=== PATIENT | female | born 1940 | race Caucasian/White ===

== ENCOUNTER 2022-10-26 11:05 | Outpatient (REF) | payer MEDICARE, OTHER, SELFPAY ==
[2022-10-26 11:36] LABS: Appearance Urine Slightly Cloudy (Clear); Bilirubin Urine Negative (Negative); Blood Urine Trace-intact (Negative); Color Urine Yellow (Yellow); Glucose Urine Negative (Negative); Ketones Urine Negative (Negative); Leukocyte Esterase Urine 1+ (Negative); Nitrite Urine Negative (Negative); Protein Urine Negative (Negative); Urobilinogen Urine 0.2 (0.2-1.0)
[2022-10-26 11:49] LABS: RBC Urine 0-2 (0-2)
== END 2022-10-26 11:06 | disposition home or self-care (01) ==
LOC: NPINS 11:05
PROVIDERS: PCP Family Medicine; Visit Provider Nurse Practitioner Adult Health
DX: R41.0 Disorientation, unspecified (principal)
CPT/HCPCS: 81003; 81015; 87086

== ENCOUNTER 2024-06-19 22:30 | Outpatient (CLI) | payer MEDICARE, OTHER, SELFPAY | END 2024-06-19 22:31 | disposition home or self-care (01) | LOC: AMB 06-20 23:32 | PROVIDERS: PCP Family Medicine; Visit Provider Student in an Organized Health Care Education/Training Program | DX: S89.91XA Unspecified injury of right lower leg, initial encounter (principal); W19.XXXA Unspecified fall, initial encounter; Y92.10 Unspecified residential institution as the place of occurrence of the external cause | CPT/HCPCS: A0425; A0427 ==

== ENCOUNTER 2024-06-19 23:00 | Inpatient (IN) | payer MEDICARE, OTHER, SELFPAY ==
[2024-06-19 23:09] VITALS: BP 109/66; PULSE 103; RESP 18; TEMP 36.4; O2SAT 90
--- NOTE | 2024-06-19 23:28 | CRLHL7_ITS ---
For Patients: As a result of the Century Cures Act, medical imaging exams and procedure reports are released immediately into your electronic medical record. You may view this report before your referring provider. If you have questions, please contact your health care provider. Indication: Trauma. Technique: Pelvis/left hip, 2 views. Comparison: October 24, 2018. Findings/Impression: Bones/joint spaces: Left hip intertrochanteric arelis and nail. Subtle lucency involving the left lateral femoral neck favored to be related to overlapping heterotopic bone formation. Recommend correlation with point tenderness to exclude nondisplaced fracture. Otherwise, no hardware complication. Acute right hip intertrochanteric fracture with varus angulation. Soft tissues: Unremarkable. Dictated by Ricki Vazquez MD @ 06/20/2024 12:23:29 AM (Electronically Signed)
--- NOTE | 2024-06-19 23:28 | CRLHL7_ITS ---
For Patients: As a result of the Cures Act, medical imaging exams and procedure reports are released immediately into your electronic medical record. You may view this report before your referring provider. If you have questions, please contact your health care provider. Indication: Trauma. Technique: Right femur, 2 views. Comparison: None. Findings/Impression: Bones: Acute displaced right femoral intertrochanteric fracture with varus angulation. Joint spaces: Unremarkable. Soft tissues: Unremarkable. Dictated by Ricki Vazquez MD @ 06/20/2024 12:17:45 AM (Electronically Signed)
--- NOTE | 2024-06-19 23:29 | CRLHL7_ITS ---
For Patients: As a result of the Century Cures Act, medical imaging exams and procedure reports are released immediately into your electronic medical record. You may view this report before your referring provider. If you have questions, please contact your health care provider. INDICATION: Fall. COMPARISON: None. TECHNIQUE: CT of the cervical spine without IV contrast. Coronal and sagittal reconstructions. FINDINGS: No acute fracture or traumatic malalignment of the cervical spine. Mild anterolisthesis of C3 on C4 and C4 on C5. Minimal retrolisthesis of C5 on C6 and C6 on C7. Reversal of the normal cervical lordosis. Degenerative changes of the C1-C2 articulation. Spondylotic changes including endplate spurring, facet arthropathy, and disc space narrowing. Bilateral neural foraminal narrowing and mild spinal canal stenosis at C5-C6 and C6-C7. No prevertebral soft tissue swelling. Visualized intracranial contents are unremarkable. Diminutive thyroid gland. The mastoid air cells are clear. Biapical pleural scarring. IMPRESSION: 1. No acute fracture or traumatic malalignment of the cervical spine. 2. Reversal of the normal cervical lordosis with multilevel spondylotic changes. Please note that all CT scans at this facility use dose modulation, iterative reconstruction, and/or weight-based dosing when appropriate to reduce radiation dose to as low as reasonably achievable. Dictated by Carol Huizar MD @ 06/20/2024 12:28:34 AM (Electronically Signed)
--- NOTE | 2024-06-19 23:29 | CRLHL7_ITS ---
For Patients: As a result of the Century Cures Act, medical imaging exams and procedure reports are released immediately into your electronic medical record. You may view this report before your referring provider. If you have questions, please contact your health care provider. INDICATION: Fall. COMPARISON: None. TECHNIQUE: CT of the head without IV contrast. Coronal and sagittal reconstructions. FINDINGS: No intracranial hemorrhage, mass effect, or evidence of acute infarct. No midline shift. No abnormal extra-axial fluid collections. Moderate generalized cerebral and cerebellar volume loss with associated ex vacuo dilation of the lateral ventricles. Mild chronic small vessel ischemic disease. Orbits and extraocular muscles are symmetric. The visualized paranasal sinuses and mastoid air cells are clear. Soft tissues are unremarkable. No acute fracture identified. IMPRESSION: 1. No acute intracranial findings. 2. Moderate generalized parenchymal volume loss and mild chronic small vessel ischemic disease. Please note that all CT scans at this facility use dose modulation, iterative reconstruction, and/or weight-based dosing when appropriate to reduce radiation dose to as low as reasonably achievable. Dictated by Carol Huizar MD @ 06/20/2024 12:21:40 AM (Electronically Signed)
--- NOTE | 2024-06-19 23:31 | ED_ITS ---
HPI - Fall General Chief Complaint: Fall/Minor Trauma <Shaun Medellin DO - Last Filed: 06/21/24 00:01> Stated Complaint: Fall <Shaun Medellin DO - Last Filed: 06/21/24 00:01> Time Seen by Provider: 06/19/24 23:28 <Shaun Medellin DO - Last Filed: 06/21/24 00:01> Source: EMS and other ([facility] staff) <Shaun Medellin DO - Last Filed: 06/21/24 00:01> Mode of arrival: EMS <Shaun Medellin DO - Last Filed: 06/21/24 00:01> Limitations: no limitations and altered mental status <Shaun Medellin DO - Last Filed: 06/21/24 00:01> History of Present Illness HPI Narrative: Patient is an 84-year-old female with a history of dementia who is currently comfort cares only presenting to the emergency department for a fall. She comes from [place] and typically needs help with ambulation as she is a high fall risk. Susannah lara a was trying to help her back to bed when she got out of bed by herself to closer door and the patient fell backwards hitting her head. She patient imaging screaming in pain so staff called EMS to bring her to the emergency department to look for any injuries. Patient has severe dementia and cannot answer any of my questions appropriately. <Shaun Medellin DO - Last Filed: 06/21/24 00:01> Related Data Home Medications: Home Medications ?Medication ?Instructions ?Recorded ?Confirmed acetaminophen 500 mg tablet 1,000 mg PO TID PRN 06/19/24 06/20/24 clotrimazole 1 % topical cream applic topical 06/19/24 (Antifungal (clotrimazole)) levothyroxine 75 mcg tablet 75 mcg PO DAILY 06/19/24 06/19/24 lorazepam 0.5 mg tablet 0.25 mg PO DAILY PRN 06/19/24 06/20/24 sertraline 100 mg tablet 100 mg PO DAILY 06/19/24 06/19/24 sertraline 25 mg tablet 25 mg PO DAILY 06/19/24 06/19/24 sennosides 8.6 mg-docusate sodium 1 tab-cap PO BID 06/20/24 06/20/24 50 mg tablet (Stimulant Laxative Plus) <Shaun Medellin DO - Last Filed: 06/21/24 00:01> Allergies/Adverse Reactions: Allergies Allergy/AdvReac Type Severity Reaction Status Date / Time gadodiamide Allergy Verified 06/19/24 23:18 Iodinated Contrast Media Allergy Verified 06/19/24 23:18 <Shaun Medellin DO - Last Filed: 06/21/24 00:01> Review of Systems Status of ROS: Reports: unobtainable due to mental status <Shaun Medellin DO - Last Filed: 06/21/24 00:01> [facility] Medical History: Medical History Hx SBO ?Z87.19 - Personal history of other diseases of the digestive system (ICD-10) Dementia without behavioral disturbance ?F03.90 - Unspecified dementia, unspecified severity, without behavioral disturbance, psychotic disturbance, mood disturbance, and anxiety (ICD-10) History of colon polyps ?Z86.010 - Personal history of colonic polyps (ICD-10) Diverticulitis of colon (without mention of hemorrhage) ?K57.32 - Diverticulitis of large intestine without perforation or abscess without bleeding (ICD-10) Femur fracture, right ?S72.91XA - Unspecified fracture of right femur, initial encounter for closed fracture (ICD-10) Fracture of neck ?S12.9XXA - Fracture of neck, unspecified, initial encounter (ICD-10) Osteoarthritis ?M19.90 - Unspecified osteoarthritis, unspecified site (ICD-10) Constipation ?K59.00 - Constipation, unspecified (ICD-10) Osteoporosis ?M81.0 - Age-related osteoporosis without current pathological fracture (ICD- 10) Fracture closed, humerus ?S42.309A - Unspecified fracture of shaft of humerus, unspecified arm, initial encounter for closed fracture (ICD-10) Incontinent of urine ?R32 - Unspecified urinary incontinence (ICD-10) Insomnia ?G47.00 - Insomnia, unspecified (ICD-10) Hyperthyroidism ?E05.90 - Thyrotoxicosis, unspecified without thyrotoxic crisis or storm (ICD-10) <Shaun Medellin DO - Last Filed: 06/21/24 00:01> Surgical History: Surgical History (Updated 06/20/24 @ 07:29 by Radha Patel MD) History of salpingectomy ?Z90.79 - Acquired absence of other genital organ(s) (ICD-10) History of conization of cervix ?Z98.890 - Other specified postprocedural states (ICD-10) Hx of appendectomy ?Z90.49 - Acquired absence of other specified parts of digestive tract (ICD- 10) S/P ORIF (open reduction internal fixation) fracture ?Z98.890 - Other specified postprocedural states (ICD-10) ?Z87.81 - Personal history of (healed) traumatic fracture (ICD-10) H/O lysis of adhesions ?Z98.890 - Other specified postprocedural states (ICD-10) H/O colonoscopy ?Z98.890 - Other specified postprocedural states (ICD-10) <Shaun Medellin DO - Last Filed: 06/21/24 00:01> Social History: Social History What is your current living situation?: I presently have a place to live Problems where you live: no known problems Problems where you live details: none In the past 12 months, utilities in danger of being shut off: no In past 12 months, lack of transportation kept you from medical appts, meetings, work, or getting things needed for daily living: no In the past 12 mos, have been you worried that your food would run out before you had money to buy more?: unable to answer In the past 12 mos, the food you bought just didn't last and you didn't have money to buy more?: unable to answer How often does anyone, including family, friends and others, physically hurt you : unable to answer How often does anyone, including family, friends and others, insult or talk down to you: unable to answer How often does anyone, including family, friends and others, threaten you with harm: unable to answer How often does anyone, including family, friends and others, scream or curse at you: unable to answer <Shaun Medellin DO - Last Filed: 06/21/24 00:01> Exam Narrative: Exam Narrative: Const: Thin, moderate distress Eyes: PERRL, no conjunctival injection, and symmetrical lids HENT: Atraumatic external nose and ears. Moist mucous membranes. Neck: Symmetric, trachea midline, No thyromegaly. CVS: RRR, No murmurs or gallops. Peripheral pulses 2+ and equal in all extremities RESP: Unlabored respiratory effort. Clear to auscultation bilaterally. GI: Nontender/Nondistended, No rebound or guarding. MSK:Extremities w/o deformity, tender bilateral hips and right thigh Skin: Warm, Dry. No rashes or lesions. Neuro: No focal neurological deficits. Psych: Awake but not oriented <Shaun Medellin DO - Last Filed: 06/21/24 00:01> Const: Vital Signs, click to edit/add: Vital Signs - 24 hr 06/20/24 01:16 06/20/24 01:17 06/20/24 01:30 Temperature Pulse Rate 96 84 91 Pulse Rate [Pulse Oximeter] Respiratory Rate 16 Blood Pressure 106/72 Blood Pressure [Ri ght Arm] Pulse Oximetry 89 94 92 Oxygen Delivery Me thod Nasal Cannula Nasal Cannula Oxygen Flow Rate 1 1 06/20/24 01:45 06/20/24 02:03 06/20/24 02:03 Temperature 96.5 F L Pulse Rate 92 Pulse Rate [Pulse Oximeter] 87 Respiratory Rate 17 Blood Pressure Blood Pressure [Ri ght Arm] 144/89 H Pulse Oximetry 94 93 93 Oxygen Delivery Me thod Nasal Cannula Room Air Room Air Oxygen Flow Rate 1 <Shaun Medellin DO - Last Filed: 06/21/24 00:01> Vital Signs, click to edit/add: Vital Signs - 24 hr 06/20/24 01:16 06/20/24 01:17 06/20/24 01:30 Temperature Pulse Rate 96 84 91 Pulse Rate [Pulse Oximeter] Respiratory Rate 16 Blood Pressure 106/72 Blood Pressure [Ri ght Arm] Pulse Oximetry 89 94 92 Oxygen Delivery Me thod Nasal Cannula Nasal Cannula Oxygen Flow Rate 1 1 06/20/24 01:45 06/20/24 02:03 06/20/24 02:03 Temperature 96.5 F L Pulse Rate 92 Pulse Rate [Pulse Oximeter] 87 Respiratory Rate 17 Blood Pressure Blood Pressure [Ri ght Arm] 144/89 H Pulse Oximetry 94 93 93 Oxygen Delivery Me thod Nasal Cannula Room Air Room Air Oxygen Flow Rate 1 <German Varela MD - Last Filed: 06/20/24 01:46> Course Course ED Course: Dr. Varela took over care of this patient and about midnight. We were called to the x-ray department by the x-ray techs were doing the plain film x- rays of her hip and pelvis. Review of the plain films in the x-ray suite show evidence for a previous left hip fracture with surgical repair. She also appears to have an acute right hip inter trochanteric fracture with fracture through the lesser trochanter as well. She had pulled out her IV already. Patient was brought back to ER room 5. I asked the nurses to restarting new IV so that we can administer analgesics for comfort. Dr. Varela repeated history. Because of the dementia, patient not able to provide any history. Repeat exam Primary Survey: A- patent. Speaking clearly. Phonation normal. No stridor. B- breathing easily. Lung sounds clear and equal. Oxygen saturation normal on room air C- no active bleeding. Blood pressure stable. Symmetric pulses and cap refill in 4 extremities. D- alert . Oriented to person. Not date. Cannot give me details of what happened. GCS 15. No focal deficits. Constitutional: Appears well-developed and well-nourished. Alert. Uncomfortable, but Non toxic. HENT: Head: Atraumatic. Nose: Nose normal. Mouth/Throat: Oral mucosa is clear and moist. no trismus. Pharynx normal. Tonsils symmetric. No tonsillar enlargement, erythema, or exudate. Eyes: Conjunctivae normal. EOM normal. Pupils equal, round, and reactive to light. No scleral icterus. Neck: Normal range of motion. Neck supple. No tracheal deviation present. Cardiovascular: Normal rate, regular rhythm. No gallop. No friction rub. No murmur heard. Symmetric radial and DP and PT artery pulses . Normal cap refill in both feet. Pulmonary/Chest: Effort normal. No stridor. No respiratory distress. No wheezes. No rales. No rhonchi . No tenderness. Abdominal: Soft. Bowel sounds normal. No distension. No mass. Upper and right side tenderness. No rebound. No guarding. Musculoskeletal: RUE: Normal range of motion. No tenderness. No deformity LUE: Normal range of motion. No tenderness. No deformity RLE: Right hip tenderness. Some shortening of the right leg suspicious for hip fracture. Range of motion the hip, knee are limited by pain. No tenderness of the distal femur, thigh, knee, lower leg, ankle, foot. LLE: Normal range of motion. No edema. No tenderness. No deformity Neurological: Alert and oriented to person, but not to place or date. She does have reported advanced dementia. Normal strength. CN II-VII intact. No sensory deficit. GCS eye subscore is 4. GCS verbal subscore is 5. GCS motor subscore is 6. Normal coordination Skin: Skin is warm and dry. No rash noted. No pallor. Normal capillary refill. Psychiatric: Limited by dementia. ER course Patient received IV Dilaudid 0.5 mg and 4 mg of Zofran She was resting more comfortably after meds. CT chest abdomen pelvis showed obtained and shows no acute traumatic injury save for her right hip fracture. Incidental note of coronary atherosclerosis. She is not complaining of any chest pain. Discussed the x-ray findings with the on-call PA for Orthopedics, Shaun Quintero. He reviewed and discussed with the attending. Plan would be for operative fixation in the morning. Admit to hospitalist for pain control and medical management CBC shows normal white count and hemoglobin. Normal platelet count. Patient is not anticoagulated BMP shows normal kidney function, blood sugar, electrolytes Izquierdo catheter was placed to for bladder decompression and for comfort so the patient does not have to move her leg or roll to go to the bathroom. Twelve lead EKG does show atrial fibrillation. Rate of 76. Unknown if the AFib is new onset or old. She is not endorsing any palpitations. She is not antico agulated, according to her med list. EKG also shows low-voltage QRS. No ST segment elevation or depression or signs of ischemia. I called her son, Prasanth at about 1:20 a.m.. He did not answer his phone. Voicemail left with our return phone number. At this point she clearly cannot discharge back to her memory care unit with the amount of pain she is having from her hip fracture. Will plan to admit her to the hospitalist service overnight. Hospitalist ortho can contact her son later to confirm consent for planned. However, although she is reported to be ?comfort care?, in the interest of her comfort, operative fixation for her hip would be best. Discussed with hospitalist, through her arise in, Dr. Jiménez at 1:30 a.m.. He accepts the patient for admission. Clinical pressure 1. Right hip fracture-intratrochanteric fracture 2. Dementia 3. Atrial fibrillation 4. Fall <German Varela MD - Last Filed: 06/20/24 01:46> Vital Signs Vital signs: Initial Vital Signs Temperature 97.6 F 06/19/24 23:09 Temperature Source Temporal Artery Scan 06/19/24 23:09 Pulse Rate 103 H 06/19/24 23:09 Respiratory Rate 18 06/19/24 23:09 Blood Pressure 109/66 06/19/24 23:09 Blood Pressure Mean 80 06/19/24 23:09 Blood Pressure Position Supine 06/19/24 23:09 Pulse Oximetry 90 06/19/24 23:09 Oxygen Delivery Method Room Air 06/19/24 23:09 Vital Signs Temperature 97.6 F 06/19/24 23:09 Pulse Rate 103 H 06/19/24 23:09 Respiratory Rate 18 06/19/24 23:09 Blood Pressure 109/66 06/19/24 23:09 Pulse Oximetry 90 06/19/24 23:09 Oxygen Delivery Method Room Air 06/19/24 23:09 Temperature 98.4 F 06/20/24 23:00 Pulse Rate 106 H 06/20/24 23:00 Respiratory Rate 16 06/20/24 23:00 Blood Pressure 105/63 06/20/24 23:00 Pulse Oximetry 94 06/20/24 23:00 Oxygen Delivery Method Room Air 06/20/24 23:00 Oxygen Flow Rate 1 06/20/24 20:33 <Shaun Medellin DO - Last Filed: 06/21/24 00:01> Initial Vital Signs Temperature 97.6 F 06/19/24 23:09 Temperature Source Temporal Artery Scan 06/19/24 23:09 Pulse Rate 103 H 06/19/24 23:09 Respiratory Rate 18 06/19/24 23:09 Blood Pressure 109/66 06/19/24 23:09 Blood Pressure Mean 80 06/19/24 23:09 Blood Pressure Position Supine 06/19/24 23:09 Pulse Oximetry 90 06/19/24 23:09 Oxygen Delivery Method Room Air 06/19/24 23:09 Vital Signs Temperature 97.6 F 06/19/24 23:09 Pulse Rate 103 H 06/19/24 23:09 Respiratory Rate 18 06/19/24 23:09 Blood Pressure 109/66 06/19/24 23:09 Pulse Oximetry 90 06/19/24 23:09 Oxygen Delivery Method Room Air 06/19/24 23:09 Temperature 98.4 F 06/20/24 23:00 Pulse Rate 106 H 06/20/24 23:00 Respiratory Rate 16 06/20/24 23:00 Blood Pressure 105/63 06/20/24 23:00 Pulse Oximetry 94 06/20/24 23:00 Oxygen Delivery Method Room Air 06/20/24 23:00 Oxygen Flow Rate 1 06/20/24 20:33 <German Varela MD - Last Filed: 06/20/24 01:46> Medications Administered Medications: Generic Name Dose Route Start Last Admin Trade Name Freq PRN Reason Stop Dose Admin Acetaminophen 650 mg 06/20/24 15:25 06/20/24 20:59 Acetaminophen 325 Mg Tablet PO 650 mg Q6H EDUIN Administration Hydromorphone HCl 0.2 - 0.5 mg 06/20/24 15:25 06/20/24 17:19 Hydromorphone 0.5 Mg/0.5 Ml Inj IVP 0.2 mg Q2H PRN Administration Pain Lactated Ringer's 1,000 mls @ 75 mls/hr 06/20/24 15:25 06/20/24 16:49 Lactated Ringers 1000 Ml IV Not Given .[id number] EDUIN Cefazolin Sodium 1 gm/ Sodium 100 mls @ 200 mls/hr 06/20/24 21:00 06/20/24 22:21 Chloride IVPB 06/21/24 05:29 Infused Q8H EDUIN Infusion Lactated Ringer's 500 mls @ 250 mls/hr 06/20/24 22:15 06/20/24 22:19 Lactated Ringers 500 Ml IV 06/21/24 00:14 250 mls/hr .Q2H ONE Administration Levothyroxine Sodium 75 mcg 06/20/24 07:00 06/20/24 08:59 Levothyroxine 75 Mcg Tablet PO Not Given DAILY@0700 EDUIN Oxycodone HCl 2.5 - 10 mg 06/20/24 15:25 06/20/24 20:59 Oxycodone 5 Mg Tablet PO 5 mg Q2H PRN Administration Pain Sennosides 2 tab 06/20/24 21:00 06/20/24 20:59 Sennosides 1 Tab Tablet PO 2 tab BID EDUIN Administration Sertraline HCl 100 mg 06/20/24 09:00 06/20/24 08:59 Sertraline 100 Mg Tablet PO Not Given DAILY EDUIN Discontinued Medications Generic Name Dose Route Start Last Admin Trade Name Vetoq PRN Reason Stop Dose Admin Acetaminophen 1,000 mg 06/20/24 03:00 06/20/24 15:12 Acetaminophen 500 Mg Tablet PO Not Given Q8H EDUIN Acetaminophen 325 - 650 mg 06/20/24 13:52 06/20/24 22:23 Acetaminophen 325 Mg Tablet PO 06/20/24 13:53 Not Given ONCE ONE Cefazolin Sodium 1 gm 06/20/24 12:44 06/20/24 13:07 Cefazolin 1 Gm Inj IVP 06/20/24 12:45 1 gm ONCE ONE Administration Hydromorphone HCl 0.5 mg 06/20/24 00:09 06/20/24 00:37 Hydromorphone 0.5 Mg/0.5 Ml Inj IVP 0.5 mg Q1H PRN Administration Pain Hydromorphone HCl 0.5 mg 06/20/24 02:58 06/20/24 04:42 Hydromorphone 0.5 Mg/0.5 Ml Inj IVP 0.5 mg Q2H PRN Administration Severe Pain Sodium Chloride 1,000 mls @ 75 mls/hr 06/20/24 03:03 06/20/24 22:22 0.9 % Sodium Chloride 1000 Ml IV Infused .[id number] EDUIN Infusion Lactated Ringer's 500 mls @ 500 mls/hr 06/20/24 08:00 06/20/24 11:00 Lactated Ringers 500 Ml IV 06/20/24 08:59 Infused .Q1H ONE Infusion Lactated Ringer's 1,000 mls @ 75 mls/hr 06/20/24 13:20 06/20/24 15:15 Lactated Ringers 1000 Ml IV 75 mls/hr .[id number] EDUIN Infusion Lactated Ringer's 500 mls @ 500 mls/hr 06/20/24 18:14 06/20/24 22:22 Lactated Ringers 500 Ml IV 06/20/24 19:13 Infused .Q1H ONE Infusion Lactated Ringer's 500 mls @ 250 mls/hr 06/20/24 18:58 06/20/24 22:22 Lactated Ringers 500 Ml IV 06/20/24 20:57 Not Given .Q2H ONE Lactated Ringer's 500 mls @ 250 mls/hr 06/20/24 19:15 06/20/24 22:22 Lactated Ringers 500 Ml IV 06/20/24 21:14 Infused .Q2H ONE Infusion Metoprolol Tartrate 2.5 mg 06/20/24 08:00 06/20/24 08:51 Metoprolol Tartrate 1 Mg/Ml Inj IVP 06/20/24 08:01 2.5 mg ONCE ONE Administration Ondansetron HCl 4 mg 06/20/24 00:09 06/20/24 00:37 Ondansetron 2 Mg/Ml Inj IVP 06/20/24 00:10 4 mg ONCE ONE Administration Sertraline HCl 25 mg 06/20/24 09:00 06/20/24 08:59 Sertraline 50 Mg Tablet PO Not Given DAILY EDUIN Sodium Chloride 5 ml 06/20/24 09:00 06/20/24 08:51 Sodium Chloride 0.9 % (Flush) 10 Ml Syringe IVF Not Given BID EDUIN Tranexamic Acid 1,000 mg 06/20/24 13:19 06/20/24 13:07 Tranexamic Acid 100 Mg/Ml Inj IV 06/20/24 13:20 1,000 mg ONCE ONE Administration <Shaun Medellin, DO - Last Filed: 06/21/24 00:01> Generic Name Dose Route Start Last Admin Trade Name Freq PRN Reason Stop Dose Admin Acetaminophen 650 mg 06/20/24 15:25 06/20/24 20:59 Acetaminophen 325 Mg Tablet PO 650 mg Q6H EDUIN Administration Hydromorphone HCl 0.2 - 0.5 mg 06/20/24 15:25 06/20/24 17:19 Hydromorphone 0.5 Mg/0.5 Ml Inj IVP 0.2 mg Q2H PRN Administration Pain Lactated Ringer's 1,000 mls @ 75 mls/hr 06/20/24 15:25 06/20/24 16:49 Lactated Ringers 1000 Ml IV Not Given .[id number] EDUIN Cefazolin Sodium 1 gm/ Sodium 100 mls @ 200 mls/hr 06/20/24 21:00 06/20/24 22:21 Chloride IVPB 06/21/24 05:29 Infused Q8H EDUIN Infusion Lactated Ringer's 500 mls @ 250 mls/hr 06/20/24 22:15 06/20/24 22:19 Lactated Ringers 500 Ml IV 06/21/24 00:14 250 mls/hr .Q2H ONE Administration Levothyroxine Sodium 75 mcg 06/20/24 07:00 06/20/24 08:59 Levothyroxine 75 Mcg Tablet PO Not Given DAILY@0700 [facility] Oxycodone HCl 2.5 - 10 mg 06/20/24 15:25 06/20/24 20:59 Oxycodone 5 Mg Tablet PO 5 mg Q2H PRN Administration Pain Sennosides 2 tab 06/20/24 21:00 06/20/24 20:59 Sennosides 1 Tab Tablet PO 2 tab BID EDUIN Administration Sertraline HCl 100 mg 06/20/24 09:00 06/20/24 08:59 Sertraline 100 Mg Tablet PO Not Given DAILY EDUIN Discontinued Medications Generic Name Dose Route Start Last Admin Trade Name Freq PRN Reason Stop Dose Admin Acetaminophen 1,000 mg 06/20/24 03:00 06/20/24 15:12 Acetaminophen 500 Mg Tablet PO Not Given Q8H [facility] Acetaminophen 325 - 650 mg 06/20/24 13:52 06/20/24 22:23 Acetaminophen 325 Mg Tablet PO 06/20/24 13:53 Not Given ONCE ONE Cefazolin Sodium 1 gm 06/20/24 12:44 06/20/24 13:07 Cefazolin 1 Gm Inj IVP 06/20/24 12:45 1 gm ONCE ONE Administration Hydromorphone HCl 0.5 mg 06/20/24 00:09 06/20/24 00:37 Hydromorphone 0.5 Mg/0.5 Ml Inj IVP 0.5 mg Q1H PRN Administration Pain Hydromorphone HCl 0.5 mg 06/20/24 02:58 06/20/24 04:42 Hydromorphone 0.5 Mg/0.5 Ml Inj IVP 0.5 mg Q2H PRN Administration Severe Pain Sodium Chloride 1,000 mls @ 75 mls/hr 06/20/24 03:03 06/20/24 22:22 0.9 % Sodium Chloride 1000 Ml IV Infused .[id number] EDUIN Infusion Lactated Ringer's 500 mls @ 500 mls/hr 06/20/24 08:00 06/20/24 11:00 Lactated Ringers 500 Ml IV 06/20/24 08:59 Infused .Q1H ONE Infusion Lactated Ringer's 1,000 mls @ 75 mls/hr 06/20/24 13:20 06/20/24 15:15 Lactated Ringers 1000 Ml IV 75 mls/hr .[id number] EDUIN Infusion Lactated Ringer's 500 mls @ 500 mls/hr 06/20/24 18:14 06/20/24 22:22 Lactated Ringers 500 Ml IV 06/20/24 19:13 Infused .Q1H ONE Infusion Lactated Ringer's 500 mls @ 250 mls/hr 06/20/24 18:58 06/20/24 22:22 Lactated Ringers 500 Ml IV 06/20/24 20:57 Not Given .Q2H ONE Lactated Ringer's 500 mls @ 250 mls/hr 06/20/24 19:15 06/20/24 22:22 Lactated Ringers 500 Ml IV 06/20/24 21:14 Infused .Q2H ONE Infusion Metoprolol Tartrate 2.5 mg 06/20/24 08:00 06/20/24 08:51 Metoprolol Tartrate 1 Mg/Ml Inj IVP 06/20/24 08:01 2.5 mg ONCE ONE Administration Ondansetron HCl 4 mg 06/20/24 00:09 06/20/24 00:37 Ondansetron 2 Mg/Ml Inj IVP 06/20/24 00:10 4 mg ONCE ONE Administration Sertraline HCl 25 mg 06/20/24 09:00 06/20/24 08:59 Sertraline 50 Mg Tablet PO Not Given DAILY EDUIN Sodium Chloride 5 ml 06/20/24 09:00 06/20/24 08:51 Sodium Chloride 0.9 % (Flush) 10 Ml Syringe IVF Not Given BID EDUIN Tranexamic Acid 1,000 mg 06/20/24 13:19 06/20/24 13:07 Tranexamic Acid 100 Mg/Ml Inj IV 06/20/24 13:20 1,000 mg ONCE ONE Administration <German Varela MD - Last Filed: 06/20/24 01:46> MDM - Fall MDM Narrative Medical decision making narrative: Patient is an 84-year-old female presenting to the emergency department after a fall. She did hit her head will scan her head and cervical spine along his x-ray her pelvis. She has pain anywhere you touch her but she is holding her right hip and thigh at rest. Due to this I will also order a right femur x- ray <Shaun Medellin DO - Last Filed: 06/21/24 00:01> Lab Data Labs: Lab Results 06/20/24 Range/Units 00:10 WBC 10.42 (4.50-11.00) K/uL RBC 3.88 L (4.00-5.20) m/uL Hgb 11.9 L (12.0-16.0) gm/dL Hct 38.1 (33.0-51.0) % MCV 98 (80-100) fL MCH 31 (26-34) pg MCHC 31 L (32-36) gm/dL RDW Coeff of Dalton 12.7 (11.5-15.5) % Plt Count 376 (140-440) K/uL Neut % (Auto) 81.9 H (42.0-72.0) % Lymph % (Auto) 9.1 L (20-44) % Otero % (Auto) 6.8 (0.0-11.0) % Eos % (Auto) 1.0 (0.0-7.0) % Baso % (Auto) 0.1 (0.0-3.0) % Neut # (Auto) 8.50 H (1.7-7.0) K/uL Lymph # (Auto) 0.90 (0.90-2.90) K/uL Otero # (Auto) 0.70 (0.00-0.90) K/UL Eos # (Auto) 0.10 (0.00-0.50) K/uL Baso # (Auto) 0.01 (0.00-0.30) K/uL Abs Immat Gran (auto) 0.11 (0.00-0.30) K/uL Imm/Tot Granulo (auto) 1.1 % Sodium 139 (135-149) mmol/L Potassium 4.0 (3.6-5.1) mmol/L Chloride 105 (96-114) mmol/L Carbon Dioxide 27 (20-32) mmol/L Anion Gap 7 (7-15) mEq/L BUN 22 (7-30) mg/dL Creatinine 0.5 (0.5-1.5) mg/dL Estimated GFR 92 ml/min Glucose 127 H (60-115) mg/dL Calcium 9.2 (8.4-10.6) mg/dL Troponin I < 0.01 L (0.01-0.04) ng/mL TSH 26.200 H (0.270-4.20) uIU/mL <Shaun Medellin, DO - Last Filed: 06/21/24 00:01> Lab Results 06/20/24 Range/Units 00:10 WBC 10.42 (4.50-11.00) K/uL RBC 3.88 L (4.00-5.20) m/uL Hgb 11.9 L (12.0-16.0) gm/dL Hct 38.1 (33.0-51.0) % MCV 98 (80-100) fL MCH 31 (26-34) pg MCHC 31 L (32-36) gm/dL RDW Coeff of Dalton 12.7 (11.5-15.5) % Plt Count 376 (140-440) K/uL Neut % (Auto) 81.9 H (42.0-72.0) % Lymph % (Auto) 9.1 L (20-44) % Otero % (Auto) 6.8 (0.0-11.0) % Eos % (Auto) 1.0 (0.0-7.0) % Baso % (Auto) 0.1 (0.0-3.0) % Neut # (Auto) 8.50 H (1.7-7.0) K/uL Lymph # (Auto) 0.90 (0.90-2.90) K/uL Otero # (Auto) 0.70 (0.00-0.90) K/UL Eos # (Auto) 0.10 (0.00-0.50) K/uL Baso # (Auto) 0.01 (0.00-0.30) K/uL Abs Immat Gran (auto) 0.11 (0.00-0.30) K/uL Imm/Tot Granulo (auto) 1.1 % Sodium 139 (135-149) mmol/L Potassium 4.0 (3.6-5.1) mmol/L Chloride 105 (96-114) mmol/L Carbon Dioxide 27 (20-32) mmol/L Anion Gap 7 (7-15) mEq/L BUN 22 (7-30) mg/dL Creatinine 0.5 (0.5-1.5) mg/dL Estimated GFR 92 ml/min Glucose 127 H (60-115) mg/dL Calcium 9.2 (8.4-10.6) mg/dL Troponin I < 0.01 L (0.01-0.04) ng/mL TSH 26.200 H (0.270-4.20) uIU/mL <German Varela MD - Last Filed: 06/20/24 01:46> Imaging Data CT C spine: Attestation: I have reviewed the pertinent imaging results. <German Varela MD - Last Filed: 06/20/24 01:46> Radiologist's impression: IMPRESSION: 1. No acute fracture or traumatic malalignment of the cervical spine. 2. Reversal of the normal cervical lordosis with multilevel spondylotic changes. <German Varela MD - Last Filed: 06/20/24 01:46> CT scan - head: Attestation: I have reviewed the pertinent imaging results. <German Varela MD - Last Filed: 06/20/24 01:46> Radiologist's impression: IMPRESSION: 1. No acute intracranial findings. 2. Moderate generalized parenchymal volume loss and mild chronic small vessel ischemic disease. <German Varela MD - Last Filed: 06/20/24 01:46> xr femur R: Attestation: I have reviewed the pertinent imaging results. <German Varela MD - Last Filed: 06/20/24 01:46> My impression: Dr. Varela-reviewed the images while the patient was in the radiology suite , as images were obtained. There is an inter trochanteric femur fracture on the right side <German Varela MD - Last Filed: 06/20/24 01:46> Radiologist's impression: Findings/Impression: Bones: Acute displaced right femoral intertrochanteric fracture with varus angulation. <German Varela MD - Last Filed: 06/20/24 01:46> CT Chest/Ab/Pelvis: Attestation: I have reviewed the pertinent imaging results. <German Varela MD - Last Filed: 06/20/24 01:46> Radiologist's impression: IMPRESSIONS: 1. There is an impacted and comminuted fracture in the intertrochanteric region of the proximal right femur. 2. Severe atherosclerotic calcifications are noted in the coronary arteries. <German Varela MD - Last Filed: 06/20/24 01:46> ECG Data Attestation: I personally reviewed and interpreted this ECG as follows: <German Varela MD - Last Filed: 06/20/24 01:46> Interpretation: Atrial fibrillation Rate: 76 NV: Not applicable QRS axis: Low-voltage QRS. Normal axis. ST segment/T wave: No ST segment elevation or depression QTc: 429 <German Varela MD - Last Filed: 06/20/24 01:46> Discharge Plan Discharge Clinical Impression: Fracture of hip, right, closed, Fall, Dementia <Shaun Medellin DO - Last Filed: 06/21/24 00:01> Patient Disposition: Admitted As Observation <Shaun Medellin DO - Last Filed: 06/21/24 00:01>
[2024-06-20] VITALS (33 sets, daily range): BP systolic 82–144; BP diastolic 44–89; PULSE 81–108; RESP 14–25; TEMP 35.8–36.9; O2SAT 85–95
--- NOTE | 2024-06-20 00:09 | CRLHL7_ITS ---
For Patients: As a result of the Century Cures Act, medical imaging exams and procedure reports are released immediately into your electronic medical record. You may view this report before your referring provider. If you have questions, please contact your health care provider. INDICATION: Fall, right hip fracture, pelvic pain, chest pain, abdominal pain TECHNIQUE: CT chest, abdomen, and pelvis without i.v. contrast. Coronal and sagittal reformats were obtained. COMPARISON: None FINDINGS: CHEST: Cardiovascular: The heart has an unremarkable appearance and size. The pulmonary arteries are unremarkable in appearance. Ectasia of the ascending aorta is noted measuring 3.5 cm in maximal short axis diameter. Severe atherosclerotic calcifications are noted in the coronary arteries. Mediastinum: No mass or adenopathy seen. Lung: No pulmonary contusion, laceration or pneumothorax is seen. Pleura and pericardium: No sign of pleural effusion seen. No significant pericardial effusion is present. Chest wall and axilla: No mass or adenopathy seen. Bone: Unremarkable for age. No acute osseous injuries seen. ABDOMEN/PELVIS: Liver: Unremarkable. Spleen: Unremarkable. Pancreas: Unremarkable. Gallbladder: Faint layering densities are present within the gallbladder which may be due to sludge or noncalcified gallstones. Kidney: Unremarkable. No kidney or ureteral stones or obstruction seen. Adrenal: Unremarkable. Bowel: Unremarkable. The appendix is not identified. Vascular: Severe atherosclerotic calcifications of the abdominal aorta and its tributaries are present. Lymph: Unremarkable. Peritoneum: Unremarkable. No pneumoperitoneum is seen. No significant ascites is noted. Pelvis: Unremarkable. Soft tissue: Unremarkable. Bone: Moderate lumbar levoscoliosis is noted with associated facet arthritis and degenerative disc disease. There is an impacted and comminuted fracture in the intertrochanteric region of the proximal right femur. A left femoral dynamic compression screw is noted. IMPRESSIONS: 1. There is an impacted and comminuted fracture in the intertrochanteric region of the proximal right femur. 2. Severe atherosclerotic calcifications are noted in the coronary arteries. Dictated by Nando Tafoya MD @ 06/20/2024 1:11:46 AM Please note that all CT scans at this facility use dose modulation, iterative reconstruction, and/or weight-based dosing when appropriate to reduce radiation dose to as low as reasonably achievable. Dictated by: Nando Tafoya MD @ 06/20/2024 01:12:04 (Electronically Signed)
[2024-06-20] MEDS: ONDANSETRON 2 MG/ML inj 4 MG IVP (00:37)
[2024-06-20] MEDS: HYDROmorphone 0.5 mg/0.5 ml inj IVP ×3 (00:37→17:19)
[2024-06-20 00:56] LABS: Basophils Absolute Auto 0.01 K/uL (0.00-0.30); Basophils Percent Auto 0.1 % (0.0-3.0); Hematocrit 38.1 % (33.0-51.0); Hemoglobin* 11.9 gm/dL (12.0-16.0); Immature Granulocytes Abs Auto 0.11 K/uL (0.00-0.30); Immature Granulocytes Pct Auto 1.1 %; Lymphocytes Percent Auto 9.1 % (20-44); Mean Corpuscular HGB Conc 31 gm/dL (32-36); Mean Corpuscular Hemoglobin 31 pg (26-34); Mean Corpuscular Volume 98 fL (80-100); Monocytes Percent Auto 6.8 % (0.0-11.0); Neutrophils Percent Auto 81.9 % (42.0-72.0); Platelet Count* 376 K/uL (140-440); RDW Coefficient of Variation % 12.7 % (11.5-15.5); Red Blood Count 3.88 m/uL (4.00-5.20); Slide Review Reflex No; White Blood Count* 10.42 K/uL (4.50-11.00)
[2024-06-20 01:18] LABS: Chloride* 105 mmol/L (96-114); Sodium* 139 mmol/L (135-149)
[2024-06-20 01:21] LABS: Anion Gap 7 mEq/L (7-15); Carbon Dioxide* 27 mmol/L (20-32); Creatinine* 0.5 mg/dL (0.5-1.5); Estimated Glomerular Filt Rate 92 ml/min
[2024-06-20 01:22] LABS: Blood Urea Nitrogen* 22 mg/dL (7-30); Calcium* 9.2 mg/dL (8.4-10.6); Glucose* 127 mg/dL (60-115)
--- NOTE | 2024-06-20 03:04 | W.PM.THH&P_ITS ---
Telehealth- H&P: HPI History of Present Illness Date Seen: 06/20/24 Chief complaint: Fall Narrative: Marialuisa Little is seen as an Interactive Telehealth visit. Marialuisa Little is a 84 year old male who is 84-year-old female who presents to hospital after fall. Patient is a resident of a facility: [facility]. At baseline this patient requires assistance with ambulation is noted to be high falls risk. She has noted severe dementia and has difficulty answering questions at baseline. She had a fall at her facility and she was brought to the ER. She was complaining of right hip pain. X-ray and CT imaging showed right hip intratrochanteric fracture. On-call orthopedics was communicated with and they plan for operative fixation in the a.m. Incidentally on the EKG the patient was found to have atrial fibrillation. She is not on anticoagulation and her rate is controlled. Unclear if this is a old diagnosis. Review of Systems Status of ROS: Reports: unobtainable due to medical condition and unobtainable due to mental status [facility] Medical History (Updated 06/20/24 @ 03:15 by Doc Jiménez MD) Femur fracture, left ?S72.92XA - Unspecified fracture of left femur, initial encounter for closed fracture (ICD-10) Femur fracture ?S72.90XA - Unspecified fracture of unspecified femur, initial encounter for closed fracture (ICD-10) Femur fracture, left ?S72.92XA - Unspecified fracture of left femur, initial encounter for closed fracture (ICD-10) Femur fracture, right ?S72.91XA - Unspecified fracture of right femur, initial encounter for closed fracture (ICD-10) Fracture of neck ?S12.9XXA - Fracture of neck, unspecified, initial encounter (ICD-10) Osteoarthritis ?M19.90 - Unspecified osteoarthritis, unspecified site (ICD-10) Constipation ?K59.00 - Constipation, unspecified (ICD-10) Osteoporosis ?M81.0 - Age-related osteoporosis without current pathological fracture (ICD- 10) Fracture closed, humerus ?S42.309A - Unspecified fracture of shaft of humerus, unspecified arm, initial encounter for closed fracture (ICD-10) 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 - Unspecified dementia, unspecified severity, without behavioral disturbance, psychotic disturbance, mood disturbance, and anxiety (ICD-10) ?W88.8XXA - Exposure to other ionizing radiation, initial encounter (ICD-10) Incontinent of urine ?R32 - Unspecified urinary incontinence (ICD-10) Insomnia ?G47.00 - Insomnia, unspecified (ICD-10) Hyperthyroidism ?E05.90 - Thyrotoxicosis, unspecified without thyrotoxic crisis or storm (ICD-10) Social History What is your current living situation?: I presently have a place to live Problems where you live: no known problems Problems where you live details: n/a In the past 12 months, utilities in danger of being shut off: unable to answer In past 12 months, lack of transportation kept you from medical appts, meetings, work, or getting things needed for daily living: unable to answer In the past 12 mos, have been you worried that your food would run out before you had money to buy more?: unable to answer In the past 12 mos, the food you bought just didn't last and you didn't have money to buy more?: unable to answer How often does anyone, including family, friends and others, physically hurt you : unable to answer How often does anyone, including family, friends and others, insult or talk down to you: unable to answer How often does anyone, including family, friends and others, threaten you with harm: unable to answer How often does anyone, including family, friends and others, scream or curse at you: unable to answer Meds Home Medications and Allergies Home Medications ?Medication ?Instructions ?Recorded ?Confirmed ?Type acetaminophen 500 mg tablet PO 06/19/24 History clotrimazole 1 % topical cream applic topical 06/19/24 History (Antifungal (clotrimazole)) levothyroxine 75 mcg tablet 75 mcg PO DAILY 06/19/24 06/19/24 History lorazepam 0.5 mg tablet mg PO 06/19/24 History sertraline 100 mg tablet 100 mg PO DAILY 06/19/24 06/19/24 History sertraline 25 mg tablet 25 mg PO DAILY 06/19/24 06/19/24 History sertraline 50 mg tablet PO 06/19/24 History Allergies Allergy/AdvReac Type Severity Reaction Status Date / Time gadodiamide Allergy Verified 06/19/24 23:18 Iodinated Contrast Media Allergy Verified 06/19/24 23:18 Exam Narrative Exam Narrative: Physical Exam GENERAL: ?vital signs reviewed, well developed and nourished, in no distress. S he is appearing comfortable, but not allowing examination HEENT: pupils are equal round and reactive to light, NECK: patient refused neck exam HEART: Regular rate and rhythm without any rubs, murmurs, or gallops. LUNGS: Clear to auscultation bilaterally with good air movement throughout ABDOMEN: Observation from nurse assisted exam, abdomen appears soft, nontender, and nondistended with Positive bowel sounds noted. EXTREMITIES: patient appeared to be in pain on the right side. leg was internally rotated. patient refused rest of exam SKIN:? Observed warm and dry with color normal Const Vital Signs, click to edit/add: Vital Signs - 24 hr 06/19/24 23:09 06/20/24 01:16 06/20/24 01:17 Temperature 97.6 F Pulse Rate 96 84 Pulse Rate [Pulse Oximeter] 103 H Respiratory Rate 18 16 Blood Pressure 106/72 Blood Pressure [Right Arm] Blood Pressure [Right Upper Arm] 109/66 Pulse Oximetry 90 89 94 Oxygen Delivery Method Room Air Nasal Cannula Oxygen Flow Rate 1 06/20/24 01:30 06/20/24 01:45 06/20/24 02:03 Temperature 96.5 F L Pulse Rate 91 92 Pulse Rate [Pulse Oximeter] 87 Respiratory Rate 17 Blood Pressure Blood Pressure [Right Arm] 144/89 H Blood Pressure [Right Upper Arm] Pulse Oximetry 92 94 93 Oxygen Delivery Method Nasal Cannula Nasal Cannula Room Air Oxygen Flow Rate 1 1 06/20/24 02:03 Temperature Pulse Rate Pulse Rate [Pulse Oximeter] Respiratory Rate Blood Pressure Blood Pressure [Right Arm] Blood Pressure [Right Upper Arm] Pulse Oximetry 93 Oxygen Delivery Method Room Air Oxygen Flow Rate Exam limitations: altered mental status General appearance: frail appearing; not cooperative Orientation/consciousness: Yes awake and Yes confused; not oriented to person, not oriented to place and not oriented to time [facility] Common normals: normocephalic Head and scalp: normocephalic Neuro Sensorium/orientation: awake; not oriented to person, not oriented to place and not oriented to time Hospitalist - H&P: Result Labs Labs: Short CBC 06/20/24 Range/Units 00:10 WBC 10.42 (4.50-11.00) K/uL Hgb 11.9 L (12.0-16.0) gm/dL Hct 38.1 (33.0-51.0) % Plt Count 376 (140-440) K/uL [facility] 06/20/24 00:10 Sodium 139 Potassium 4.0 Chloride 105 Carbon Dioxide 27 BUN 22 Creatinine 0.5 Glucose 127 H Calcium 9.2 Assessment and Plan Assessment and plan (1) Dementia: Status: Acute (2) Fall: Status: Acute (3) Fracture of hip, right, closed: Status: Acute (4) Osteoporosis: Status: Acute Plan 84-year-old female with a past medical history significant for dementia and hypothyroidism, osteoporosis who presents to hospital after fall. In the ER she was found to have trauma to her right hip. Due to her fall, patient underwent a CT scan of the head which was negative for intracranial injury however patient's CT scan of the chest abdomen pelvis showed impacted comminuted fracture in the intertrochanteric region of the proximal right fever. Orthopedic was consulted and they recommended a surgical fixation for pain control. Patient has a previous history of left femur fracture status post femoral dynamic screw. From a preoperative standpoint, patient's blood pressures are stable, room patient is on room air. Her labs show a baseline creatinine of 0.5. Blood sugars are well-controlled. Hemoglobin is stable at 11.9. Given her advanced dementia and her noted atherosclerotic disease on imaging, I would think she is a moderate surgical risk for moderate risk surgery. Atrial fibrillation: Unclear if this is an old diagnosis. She is not on any anticoagulation. Her rate is controlled. Does not appear to be in any congestive heart failure or pulmonary distress. Telehealth Visit Today's History and Physical is provided via interactive telehealth by Dr. Doc Jiménez MD. Patient is located at [place]. Provider is located at [employer] Nursing staff assisted with the patient's examination. The visit being done today meets criteria for a telehealth visit and the patient or patient's parent and/or gaurdian is aware the visit is a telehealth visit. Camera Start Time 2:30 Camera End Time 3:00 Telehealth: Statement Statement Telehealth Visit: Today's History and Physical is provided via interactive telehealth by Doc Jiménez MD.? Patient is located at [facility].? Provider is located at [employer] Nursing staff assisted with the patient's exam. The visit being done today meets criteria for a telehealth visit and the patient or patient?s parent/guardian is aware the visit is a telehealth visit. Camera Start Time: 02:30 Camera End Time: 03:00
--- NOTE | 2024-06-20 03:49 | PC.NURSE ---
Call made to Prasanth, Emergency Contact at 0310, no answer, left voicemail with call back number.
[2024-06-20] MEDS: 0.9 % SODIUM CHLORIDE 1000 ml 1,000 ML 75 ML IV (04:52)
--- NOTE | 2024-06-20 05:51 | PC.NURSE ---
Patient arrived from ED at 0155. Patient pleasantly confused. Transferred from stretcher to room bed via a sliding sheet. After transferring patient had facial grimacing and was grabbing site.?Patient appeared comfortable at rest and denied pain after that time. Was later given PRN Dilaudid?as she was quietly calling out, ?I hurt, I hurt.? Patient has been sleeping comfortably since administration and has had no further signs of discomfort. Resistive to some cares and assessment. Redirection effective at times.?
[2024-06-20] MEDS: LACTATED RINGERS 500 ML 500 ML IV ×2 (08:51→17:30)
[2024-06-20] MEDS: METOPROLOL TARTRATE 1 MG/ML inj 2.5 MG IVP (08:51)
--- NOTE | 2024-06-20 08:52 | PM.IMPN1 ---
Progress Note: A&P Assessment and plan (1) Fall: Status: Acute (2) Fracture of hip, right, closed: Problem details: - planning elective surgery, possibly today if echocardiogram is completed Status: Acute (3) Osteoporosis: Status: Chronic (4) Dementia: Problem details: - severe; unintelligible speech, almost nonverbal Status: Acute (5) Afib: Problem details: - appears to be new, cannot find any mention of this in her history - looks like she has a history of hyperthyroidism. Will check a TSH and an echocardiogram prior to surgery. - monitor on cardiac telemetry and use beta-ishan to keep heart rate less than 100. Blood pressure is a little soft this morning so I will give an LR bolus. - Will hold off on anticoagulation for now due to plan for surgery. Status: Acute Subjective Time Seen by Provider: 07:40 Date Seen: 06/20/24 Interval history: Marialuisa is severely demented and although she is awake and alert, she is almost nonverbal with mostly unintelligible speech. I spoke with her son, Prasanth, this morning over the phone. Attempts had been made to contact him last night, however it went to voicemail. I spoke with Prasanth about her right hip fracture, her functional status, and her increased risk of mortality within the next year if her hip fracture is not surgical fixed. We also discussed atrial fibrillation. He tells me that to his knowledge she has no history of atrial fibrillation. We spoke about the risks and benefits of anticoagulation, including increased risk bleeding in setting of falls. Exam Narrative: Exam Narrative: General: No acute distress. Awake, alert, mostly unintelligible speech. She did respond with 1 word when I told her that I spoke with her son. No pallor. No jaundice. Oropharynx: Clear. Mucous membranes dry. Cardiovascular: Irregularly irregular. No murmurs, gallops, or rubs. Respiratory: Clear to auscultation bilaterally. No wheezes or crackles. Abdomen: Bowel sounds present. Soft, nondistended, nontender. Extremities: Right lower extremity is shortened and externally rotated. No pedal edema. Const: Vital Signs, click to edit/add: Vital Signs - 24 hr 06/19/24 23:09 06/20/24 01:16 06/20/24 01:17 Temperature 97.6 F Pulse Rate 96 84 Pulse Rate [Pulse Oximeter] 103 H Respiratory Rate 18 16 Blood Pressure 106/72 Blood Pressure [Ri ght Arm] Blood Pressure [Ri ght Upper Arm] 109/66 Pulse Oximetry 90 89 94 Oxygen Delivery Me thod Room Air Nasal Cannula Oxygen Flow Rate 1 06/20/24 01:30 06/20/24 01:45 06/20/24 02:03 Temperature 96.5 F L Pulse Rate 91 92 Pulse Rate [Pulse Oximeter] 87 Respiratory Rate 17 Blood Pressure Blood Pressure [Ri ght Arm] 144/89 H Blood Pressure [Ri ght Upper Arm] Pulse Oximetry 92 94 93 Oxygen Delivery Me thod Nasal Cannula Nasal Cannula Room Air Oxygen Flow Rate 1 1 06/20/24 02:03 06/20/24 07:57 Temperature 98.2 F Pulse Rate Pulse Rate [Pulse Oximeter] 100 Respiratory Rate 20 Blood Pressure Blood Pressure [Ri ght Arm] 103/64 Blood Pressure [Ri ght Upper Arm] Pulse Oximetry 93 92 Oxygen Delivery Me thod Room Air Nasal Cannula Oxygen Flow Rate 1.5 Labs Labs: Laboratory Results - last 24 hr 06/20/24 00:10 WBC 10.42 RBC 3.88 L Hgb 11.9 L Hct 38.1 MCV 98 MCH 31 MCHC 31 L RDW Coeff of [place] 12.7 Plt Count 376 Neut % (Auto) 81.9 H Lymph % (Auto) 9.1 L [place] % (Auto) 6.8 Eos % (Auto) 1.0 Baso % (Auto) 0.1 Neut # (Auto) 8.50 H Lymph # (Auto) 0.90 [place] # (Auto) 0.70 Eos # (Auto) 0.10 Baso # (Auto) 0.01 Abs Immat Gran (auto) 0.11 Imm/Tot Granulo (auto) 1.1 Sodium 139 Potassium 4.0 Chloride 105 Carbon Dioxide 27 Anion Gap 7 BUN 22 Creatinine 0.5 Estimated GFR 92 Glucose 127 H Calcium 9.2
--- NOTE | 2024-06-20 10:16 | REH.PT ---
Orders received. Pt having surgery today. Will follow up to complete PT/OT evals tomorrow.
--- NOTE | 2024-06-20 11:53 | CRLHL7_ITS ---
For Patients: As a result of the Cures Act, medical imaging exams and procedure reports are released immediately into your electronic medical record. You may view this report before your referring provider. If you have questions, please contact your health care provider. Indication: Open reduction internal fixation Technique: Four fluoroscopic images of the right femur. Fluoroscopic time 107.7 seconds. IMPRESSION: Fluoroscopic guidance for open reduction internal fixation proximal right femoral fracture. Dictated by Vargas Alracon MD @ 06/20/2024 4:16:04 PM (Electronically Signed)
--- NOTE | 2024-06-20 12:39 | PM.ORCN ---
History of Present Illness HPI Date Seen: 06/20/24 Chief complaint: Fall Narrative: The patient is an 84-year-old community ambulator without assist. She has dementia and does not provide a history. She was brought to the emergency department with complaints of right hip pain. An inter trochanteric fracture has been diagnosed. She has been medically cleared for surgery. Any pertinent history is provided by her son. Review of Systems Narrative: The patient is unable to provide a review of systems [facility] Medical History Hx SBO ?Z87.19 - Personal history of other diseases of the digestive system (ICD-10) Dementia without behavioral disturbance ?F03.90 - Unspecified dementia, unspecified severity, without behavioral disturbance, psychotic disturbance, mood disturbance, and anxiety (ICD-10) History of colon polyps ?Z86.010 - Personal history of colonic polyps (ICD-10) Diverticulitis of colon (without mention of hemorrhage) ?K57.32 - Diverticulitis of large intestine without perforation or abscess without bleeding (ICD-10) Femur fracture, right ?S72.91XA - Unspecified fracture of right femur, initial encounter for closed fracture (ICD-10) Fracture of neck ?S12.9XXA - Fracture of neck, unspecified, initial encounter (ICD-10) Osteoarthritis ?M19.90 - Unspecified osteoarthritis, unspecified site (ICD-10) Constipation ?K59.00 - Constipation, unspecified (ICD-10) Osteoporosis ?M81.0 - Age-related osteoporosis without current pathological fracture (ICD-10) Fracture closed, humerus ?S42.309A - Unspecified fracture of shaft of humerus, unspecified arm, initial encounter for closed fracture (ICD-10) Incontinent of urine ?R32 - Unspecified urinary incontinence (ICD-10) Insomnia ?G47.00 - Insomnia, unspecified (ICD-10) Hyperthyroidism ?E05.90 - Thyrotoxicosis, unspecified without thyrotoxic crisis or storm (ICD-10) Surgical History (Updated 06/20/24 @ 07:29 by Radha Patel MD) History of salpingectomy ?Z90.79 - Acquired absence of other genital organ(s) (ICD-10) History of conization of cervix ?Z98.890 - Other specified postprocedural states (ICD-10) Hx of appendectomy ?Z90.49 - Acquired absence of other specified parts of digestive tract (ICD-10) S/P ORIF (open reduction internal fixation) fracture ?Z98.890 - Other specified postprocedural states (ICD-10) ?Z87.81 - Personal history of (healed) traumatic fracture (ICD-10) H/O lysis of adhesions ?Z98.890 - Other specified postprocedural states (ICD-10) H/O colonoscopy ?Z98.890 - Other specified postprocedural states (ICD-10) Social History What is your current living situation?: I presently have a place to live Problems where you live: no known problems Problems where you live details: none In the past 12 months, utilities in danger of being shut off: no In past 12 months, lack of transportation kept you from medical appts, meetings, work, or getting things needed for daily living: no In the past 12 mos, have been you worried that your food would run out before you had money to buy more?: unable to answer In the past 12 mos, the food you bought just didn't last and you didn't have money to buy more?: unable to answer How often does anyone, including family, friends and others, physically hurt you: unable to answer How often does anyone, including family, friends and others, insult or talk down to you: unable to answer How often does anyone, including family, friends and others, threaten you with harm: unable to answer How often does anyone, including family, friends and others, scream or curse at you: unable to answer Meds Home Medications and Allergies Home Medications ?Medication ?Instructions ?Recorded ?Confirmed ?Type acetaminophen 500 mg tablet 1,000 mg PO TID PRN 06/19/24 06/20/24 History clotrimazole 1 % topical cream applic topical 06/19/24 History (Antifungal (clotrimazole)) levothyroxine 75 mcg tablet 75 mcg PO DAILY 06/19/24 06/19/24 History lorazepam 0.5 mg tablet 0.25 mg PO DAILY PRN 06/19/24 06/20/24 History sertraline 100 mg tablet 100 mg PO DAILY 06/19/24 06/19/24 History sertraline 25 mg tablet 25 mg PO DAILY 06/19/24 06/19/24 History sennosides 8.6 mg-docusate sodium 1 tab-cap PO BID 06/20/24 06/20/24 History 50 mg tablet (Stimulant Laxative Plus) Allergies Allergy/AdvReac Type Severity Reaction Status Date / Time gadodiamide Allergy Verified 06/19/24 23:18 Iodinated Contrast Media Allergy Verified 06/19/24 23:18 Ortho Exam Narrative Exam Narrative: The patient is examined supine in the hospital bed. She is confused and is unable to follow commands. The skin about the right hip is intact, no swelling, no ecchymosis, no surgical scars The right foot is well perfused. Sensation and motor exam is not possible, given her underlying mental status. Const Vital Signs, click to edit/add: Vital Signs - 24 hr 06/19/24 23:09 06/20/24 01:16 06/20/24 01:17 Temperature 97.6 F Pulse Rate 96 84 Pulse Rate [Pulse Oximeter] 103 H Respiratory Rate 18 16 Blood Pressure 106/72 Blood Pressure [Right Arm] Blood Pressure [Right Upper Arm] 109/66 Pulse Oximetry 90 89 94 Oxygen Delivery Method Room Air Nasal Cannula Oxygen Flow Rate 1 06/20/24 01:30 06/20/24 01:45 06/20/24 02:03 Temperature 96.5 F L Pulse Rate 91 92 Pulse Rate [Pulse Oximeter] 87 Respiratory Rate 17 Blood Pressure Blood Pressure [Right Arm] 144/89 H Blood Pressure [Right Upper Arm] Pulse Oximetry 92 94 93 Oxygen Delivery Method Nasal Cannula Nasal Cannula Room Air Oxygen Flow Rate 1 1 06/20/24 02:03 06/20/24 07:57 Temperature 98.2 F Pulse Rate Pulse Rate [Pulse Oximeter] 100 Respiratory Rate 20 Blood Pressure Blood Pressure [Right Arm] 103/64 Blood Pressure [Right Upper Arm] Pulse Oximetry 93 92 Oxygen Delivery Method Room Air Nasal Cannula Oxygen Flow Rate 1.5 Results Labs Labs: Laboratory Results - last 48 hr 06/20/24 06/20/24 00:10 08:51 WBC 10.42 RBC 3.88 L Hgb 11.9 L Hct 38.1 MCV 98 MCH 31 MCHC 31 L RDW Coeff of Dalton 12.7 Plt Count 376 Neut % (Auto) 81.9 H Lymph % (Auto) 9.1 L [place] % (Auto) 6.8 Eos % (Auto) 1.0 Baso % (Auto) 0.1 Neut # (Auto) 8.50 H Lymph # (Auto) 0.90 [place] # (Auto) 0.70 Eos # (Auto) 0.10 Baso # (Auto) 0.01 Abs Immat Gran (auto) 0.11 Imm/Tot Granulo (auto) 1.1 Sodium 139 Potassium 4.0 Chloride 105 Carbon Dioxide 27 Anion Gap 7 BUN 22 Creatinine 0.5 Estimated GFR 92 Glucose 127 H Calcium 9.2 TSH 26.200 H Lab Acknowledgement Test Added Diagnostic results Additional Comments: An AP pelvis and AP view of the right femur show a 3 part intertrochanteric fracture. There is no obvious pre-existing pathologic lesion, no pre-existing hip joint arthritis. She has a long intramedullary hip screw on the left. Assessment and Plan Assessment and plan (1) Fall: Status: Acute Total time spent: Total time spent is greater than 50% in coordination of care (as documented) at patient's floor/unit and/or counseling patient: (2) Fracture of hip, right, closed: Problem comment: - planning elective surgery, possibly today if echocardiogram is completed Status: Acute Total time spent: Total time spent is greater than 50% in coordination of care (as documented) at patient's floor/unit and/or counseling patient: (3) Osteoporosis: Status: Chronic Total time spent: Total time spent is greater than 50% in coordination of care (as documented) at patient's floor/unit and/or counseling patient: (4) Dementia: Problem comment: - severe; unintelligible speech, almost nonverbal Status: Acute Total time spent: Total time spent is greater than 50% in coordination of care (as documented) at patient's floor/unit and/or counseling patient: (5) Afib: Problem comment: - appears to be new, cannot find any mention of this in her history - looks like she has a history of hyperthyroidism. Will check a TSH and an echocardiogram prior to surgery. - monitor on cardiac telemetry and use beta-ishan to keep heart rate less than 100. Blood pressure is a little soft this morning so I will give an LR bolus. - Will hold off on anticoagulation for now due to plan for surgery. Status: Acute Total time spent: Total time spent is greater than 50% in coordination of care (as documented) at patient's floor/unit and/or counseling patient: Plan Assessment: Three part right hip intertrochanteric fracture Plan: She has been medically cleared for surgery. Therefore, we will plan ORIF today.
[2024-06-20] MEDS: CEFAZOLIN 1 GM inj IVP (13:07)
[2024-06-20] MEDS: TRANEXAMIC ACID 100 MG/ML INJ 1000 MG IV (13:07)
[2024-06-20] MEDS: LACTATED RINGERS 1000 ML 1,000 ML 75 ML IV (13:17)
--- NOTE | 2024-06-20 14:03 | P.ORPRC_ITS ---
Procedure Note Date of procedure: 06/20/24 Procedure: PREOPERATIVE DIAGNOSIS: Right hip 3 part intertrochanteric fracture POSTOPERATIVE DIAGNOSIS: Right hip 3 part intertrochanteric fracture NAME OF OPERATION: Right hip fracture ORIF SURGEON: Guy Moralez MD TROMBONE SLIDE ASSEMBLER: Shaun Boyle PA-C IMPLANTS: Synthes intramedullary hip screw 11 mm x 380 mm with a 80 mm lag screw ANESTHESIA: General ESTIMATED BLOOD LOSS: 50 mL COMPLICATIONS: None SPECIMENS: None DRAINS: None PREOPERATIVE ANTIBIOTICS: Ancef 1 gram INDICATIONS: The patient is a 84-year-old who fell yesterday sustaining a 3 part intertrochanteric fracture of the right hip. They were admitted for workup and care. They have been medically cleared for surgery. The risks, benefits and expected outcomes were discussed in detail. These included but were not limited to: Infection, bleeding, injury to blood vessel or nerve, venous thromboembolism. All questions were answered to their satisfaction. Use of an congressional assistant was necessary for patient positioning and safety, soft tissue retraction and closure, dressing application, and transfer of the patient to and from the hospital bed to the fracture table. PROCEDURE: Spinal anesthesia was administered. The patient was placed supine on the fracture table. The right lower extremity was prepped and draped in the usual sterile fashion. The limb was placed in longitudinal traction. Our provisional reduction was confirmed with the C-arm. The guide pin was placed percutaneously to the tip of the greater trochanter. It was advanced into the canal. Its placement was confirmed with the image intensifier in both AP and lateral views. We then made a stab incision around the guide pin. The soft tissue sleeve was advanced to the tip of the trochanter. The opening reamer was used. The ball- tipped guide arelis was placed to the distal femoral physeal scar, its placement confirmed on both AP and lateral views. We made an incision over the flare of the greater trochanter. Dissection was carried with the Oneal elevator to the lateral cortex. A bone hook was placed over the calcar to obtain an anatomic reduction. The intramedullary nail was placed. We held the fracture reduced with the bone hook and the guide pin was taken to the subchondral bone of the femoral head on both the AP and lateral views. It was placed in the center of the head on the AP view, posterior aspect of the head on the lateral. The drill and the tap were used. We placed the 80 mm lag screw. We removed the bone hook. Our reduction remains anatomic. Traction was released. The fracture was compressed. The lag screw was set to static mode. This construct was imaged in the AP and lateral views and was felt to be well placed with an anatomic reduction. The wounds were irrigated with normal saline. They were closed with Vicryl deep and Monocryl in the skin. A dry dressing was applied. Sponge and needle counts were correct x2. The patient tolerated the procedure well. There were no apparent complications. They were carefully transferred to the hospital bed and taken to the postanesthesia care unit in satisfactory condition. PLAN: The patient will be mobilized with physical therapy. They may weightbear as tolerates on the right lower extremity. The hospitalist is planning to prescribe anticoagulation for new onset AFib. They will be discharged to a [facility] once medically appropriate.
--- NOTE | 2024-06-20 14:54 | P.ANES_ITS ---
Anesthesia Charges Start Date/Time Anesthesia Start Date: 06/20/24 Anesthesia Start Time: 12:07 Stop Date/Time Anesthesia Stop Date: 06/20/24 Anesthesia Stop Time: 14:34 Summary Emergency: COOK FRY Extremes of Age - Over 70 or under 1: COOK FRY
--- NOTE | 2024-06-20 14:54 | W.ANESCHARGE ---
Anesthesia Charges Start Date/Time Anesthesia Start Date: 06/20/24 Anesthesia Start Time: 12:07 Stop Date/Time Anesthesia Stop Date: 06/20/24 Anesthesia Stop Time: 14:34 Summary Emergency: HUMAN CAPITAL ANALYST Extremes of Age - Over 70 or under 1: HUMAN CAPITAL ANALYST
--- NOTE | 2024-06-20 15:16 | SUR.PHASEI ---
Patient meets anesthesia discharge criteria from PACU
[2024-06-20 16:27] LABS: Lab Add On Test New Spec Needed
--- NOTE | 2024-06-20 17:15 | PC.NURSE ---
Updated Dr Jackson, blood pressure 82/68, HR 106. U/o from day shift through now is 200cc. Order for bolus.
[2024-06-20 17:18] LABS: Troponin I* < 0.01 ng/mL (0.01-0.04)
[2024-06-20 17:23] LABS: Free T4 Free Thyroxine* 0.95 ng/dL (0.70-1.85)
--- NOTE | 2024-06-20 18:36 | PC.NURSE ---
End of Shift: The patient is noted to barely be orientated to herself this AM. Garbled, soft spoken mumbled speech when she does respond. Moans when repositioned in bed. Izquierdo is patent and draining minimal output throughout the day, MD notified. 500cc bolus given this AM. Son, Prasnath was contacted regarding his mom's status this AM. Consented to surgery.... Echo completed prior to surgery. R hip nailing was proceeded with... the patient returned to the floor this afternoon around 1530. The patient is requiring O2 to keep stats >90%. Soft BP's were also noted, MD notified.... 500cc bolus ordered, pressures were still noted to be low.... additional 250cc bolus was ordered per DR Jackson. HR is noted to be tachycardiac at times... afib. Trial in seated position to try water... the patilillianan tolerated this with no issues although her BP was noted to drop... the patient remains supine. Asleep now with Oxymask.... the patient is noted to remove this at times and needs a lot of reassurance when reapplying, she will pull at it. Call light within reach and bed alarm is in place. 2 small 4x4 R hip dressings present, CDI with no drainage. Ice pack to R hip as well. Q2 reposition. Has not eaten dinner. VS remain on q30 due to low BP. Teresa GREEN BSN
[2024-06-20] MEDS: LACTATED RINGERS 500 ML 500 ML 250 ML IV ×2 (19:36→22:19)
[2024-06-20] MEDS: CEFAZOLIN 1 GM in 0.9 % SODIUM CHLORIDE Mini-bag 100 ML IVPB (20:52)
[2024-06-20] MEDS: ACETAMINOPHEN 325 MG TABLET 650 MG PO (20:59)
[2024-06-20] MEDS: OXYCODONE 5 MG TABLET PO (20:59)
[2024-06-20] MEDS: SENNOSIDES 1 TAB TABLET 2 TAB PO (20:59)
[2024-06-21] VITALS (9 sets, daily range): BP systolic 89–98; BP diastolic 53–80; PULSE 104–157; RESP 16–20; TEMP 36.9–37.5; O2SAT 88–96
[2024-06-21] MEDS: OXYCODONE 5 MG TABLET PO ×3 (01:17→18:51)
[2024-06-21] MEDS: LORazepam 0.5 MG TABLET PO (02:32)
[2024-06-21] MEDS: 0.9 % SODIUM CHLORIDE 500 ML IV (03:43)
[2024-06-21] MEDS: CEFAZOLIN 1 GM in 0.9 % SODIUM CHLORIDE Mini-bag 100 ML IVPB (04:48)
[2024-06-21 05:59] LABS: Hematocrit 29.1 % (33.0-51.0); Hemoglobin* 8.8 gm/dL (12.0-16.0); Mean Corpuscular HGB Conc 30 gm/dL (32-36); Mean Corpuscular Hemoglobin 31 pg (26-34); Mean Corpuscular Volume 102 fL (80-100); Platelet Count* 248 K/uL (140-440); Red Blood Count 2.86 m/uL (4.00-5.20); White Blood Count* 10.02 K/uL (4.50-11.00)
[2024-06-21 06:01] LABS: Slide Review Reflex No
[2024-06-21 06:10] LABS: Potassium* 4.2 mmol/L (3.6-5.1); Sodium* 137 mmol/L (135-149)
[2024-06-21 06:13] LABS: Blood Urea Nitrogen* 21 mg/dL (7-30); Creatinine* 0.5 mg/dL (0.5-1.5); Est. Creatinine Clearance* 34.88; Estimated Glomerular Filt Rate 92 ml/min
[2024-06-21] MEDS: LEVOTHYROXINE 75 MCG TABLET PO (06:52)
--- NOTE | 2024-06-21 07:14 | PC.NURSE ---
Shift note: Pt has been in throughout the night. Oriented to self only. Urine output was low at the start of the shift, MD notified and ordered bolus commulatively for about 1500ml. Total urine output for the entire 12hr shift was 225ml. T/R Q2H. Pt has been confuse and disoriented making it difficult to keep either NC or OxyMask. Pt removed one of the dressing to the surgical site. Oxycodone given 2x and Ativan 1x.
[2024-06-21] MEDS: LACTATED RINGERS 500 ML 500 ML IV ×2 (07:50→15:44)
[2024-06-21] MEDS: SENNOSIDES 1 TAB TABLET 2 TAB PO ×2 (08:55→21:24)
[2024-06-21] MEDS: SERTRALINE 100 MG TABLET PO (08:55)
[2024-06-21] MEDS: ACETAMINOPHEN 325 MG TABLET 650 MG PO ×3 (09:06→21:24)
[2024-06-21] MEDS: LACTATED RINGERS 1000 ML 1,000 ML 75 ML IV (09:11)
--- NOTE | 2024-06-21 09:58 | PM.IMPN1 ---
Progress Note: A&P Assessment and plan (1) Fall: Status: Acute (2) Fracture of hip, right, closed: Problem details: - status post ORIF 06/[address] Moralez - routine postop cares - significant blood loss anemia overnight, suspect secondary to fracture, no evidence of hematoma or active bleeding at this time. Monitor, hold off on starting pharmacologic VTE prophylaxis today. Recheck hemoglobin tomorrow. Use TEDs and SCDs for VTE prophylaxis. Status: Acute (3) Osteoporosis: Status: Chronic (4) Dementia: Problem details: - severe Status: Acute (5) Afib: Problem details: - appears to be new, cannot find any mention of this in her history - looks like she has a history of hyperthyroidism, TSH elevated, free T4 wnl - continue monitoring on cardiac telemetry and use beta-ishan prn to keep heart rate less than 100, if BP allows. Blood pressure remains a little soft this morning so I will give another LR bolus. - Will hold off on anticoagulation for now due to Hgb trending down. Status: Acute (6) Acute blood loss anemia: Problem details: - suspect secondary to fracture. No indication for transfusion today. Hold off on anticoagulation for today. Recheck Hgb in am. Status: Acute Subjective Date Seen: 06/21/24 Interval history: Marialuisa is more awake today. She denies pain. Exam Narrative: Exam Narrative: General: No acute distress. Awake, alert, some intelligible one-word verbal responses today. Oriented only to self. No pallor. No jaundice. Oropharynx: Clear. Mucous membranes moist. Cardiovascular: Irregularly irregular, mildly tachycardic. No murmurs, gallops, or rubs. Respiratory: Clear to auscultation bilaterally. No wheezes or crackles. Abdomen: Bowel sounds present. Soft, nondistended, nontender. Extremities: Right hip bandages are clean, dry, and intact. No ecchymosis. No pedal edema. Const: Vital Signs, click to edit/add: Vital Signs - 24 hr 06/20/24 14:32 06/20/24 14:35 06/20/24 14:40 Temperature 97.5 F L Pulse Rate 90 99 90 Pulse Rate [Pulse Oximeter] Respiratory Rate 16 25 H 18 Blood Pressure 111/69 99/55 L 99/55 L Blood Pressure [Ri ght Arm] Pulse Oximetry 87 L 90 Oxygen Delivery Me thod Room Air Nasal Cannula Oxygen Flow Rate 3 06/20/24 14:45 06/20/24 14:50 06/20/24 14:55 Temperature Pulse Rate 81 94 103 H Pulse Rate [Pulse Oximeter] Respiratory Rate 24 14 20 Blood Pressure 103/82 112/73 112/73 Blood Pressure [Ri ght Arm] Pulse Oximetry 90 90 90 Oxygen Delivery Me thod Nasal Cannula Oxygen Flow Rate 3 06/20/24 15:00 06/20/24 15:05 06/20/24 15:10 Temperature Pulse Rate 100 89 108 H Pulse Rate [Pulse Oximeter] Respiratory Rate 24 18 24 Blood Pressure 91/65 105/65 111/68 Blood Pressure [Ri ght Arm] Pulse Oximetry 90 90 90 Oxygen Delivery Me thod Nasal Cannula Oxygen Flow Rate 3 06/20/24 15:16 06/20/24 15:45 06/20/24 16:00 Temperature 97.1 F L 97.5 F L Pulse Rate 92 90 Pulse Rate [Pulse Oximeter] Respiratory Rate 18 18 Blood Pressure 94/71 104/67 Blood Pressure [Ri ght Arm] Pulse Oximetry 90 90 Oxygen Delivery Me thod Nasal Cannula Nasal Cannula Oxygen Flow Rate 4 2 06/20/24 16:00 06/20/24 16:00 06/20/24 16:15 Temperature 97.5 F L 97.5 F L Pulse Rate 92 95 Pulse Rate [Pulse Oximeter] Respiratory Rate 18 16 18 Blood Pressure 102/62 95/58 L Blood Pressure [Ri ght Arm] Pulse Oximetry 93 90 87 L Oxygen Delivery Me thod Nasal Cannula Nasal Cannula Nasal Cannula Oxygen Flow Rate 2 4 2 06/20/24 16:26 06/20/24 16:30 06/20/24 17:00 Temperature 97.8 F 97.8 F Pulse Rate 92 91 96 Pulse Rate [Pulse Oximeter] Respiratory Rate 18 18 Blood Pressure 82/68 L 93/54 L Blood Pressure [Ri ght Arm] Pulse Oximetry 90 94 Oxygen Delivery Me thod Nasal Cannula OxyMask Oxygen Flow Rate 2 2 06/20/24 17:30 06/20/24 17:45 06/20/24 18:00 Temperature 97.8 F 97.8 F 98.5 F Pulse Rate 100 88 95 Pulse Rate [Pulse Oximeter] Respiratory Rate 16 16 16 Blood Pressure 87/44 L 99/61 95/53 L Blood Pressure [Ri ght Arm] Pulse Oximetry 94 90 94 Oxygen Delivery Me thod OxyMask Room Air OxyMask Oxygen Flow Rate 2 1 06/20/24 18:15 06/20/24 18:30 06/20/24 18:31 Temperature 98.5 F 98.5 F Pulse Rate 101 H 95 Pulse Rate [Pulse Oximeter] Respiratory Rate 16 16 Blood Pressure 96/56 L 87/51 L Blood Pressure [Ri ght Arm] Pulse Oximetry 94 85 L 90 Oxygen Delivery Me thod OxyMask Room Air OxyMask Oxygen Flow Rate 1 1 06/20/24 18:35 06/20/24 19:00 06/20/24 19:24 Temperature 98 F 98 F Pulse Rate 100 Pulse Rate [Pulse Oximeter] 100 Respiratory Rate 16 16 16 Blood Pressure 106/64 Blood Pressure [Ri ght Arm] 106/64 Pulse Oximetry 92 92 92 Oxygen Delivery Me thod OxyMask OxyMask OxyMask Oxygen Flow Rate 2 1 1 06/20/24 20:33 06/20/24 23:00 06/20/24 23:00 Temperature 98.4 F Pulse Rate 97 Pulse Rate [Pulse Oximeter] Respiratory Rate 16 16 16 Blood Pressure 99/57 L Blood Pressure [Ri ght Arm] Pulse Oximetry 95 94 Oxygen Delivery Me thod OxyMask Room Air Oxygen Flow Rate 1 06/20/24 23:00 06/20/24 23:00 06/21/24 03:00 Temperature 98.4 F 98.4 F Pulse Rate 96 Pulse Rate [Pulse Oximeter] 106 H 111 H Respiratory Rate 16 16 Blood Pressure Blood Pressure [Ri ght Arm] 105/63 95/80 Pulse Oximetry 94 90 Oxygen Delivery Me thod Room Air Room Air Oxygen Flow Rate 06/21/24 09:42 06/21/24 09:44 06/21/24 09:46 Temperature 98.5 F Pulse Rate Pulse Rate [Pulse Oximeter] 105 H 105 H Respiratory Rate 16 16 16 Blood Pressure Blood Pressure [Ri ght Arm] 89/56 L Pulse Oximetry 88 88 Oxygen Delivery Me thod Room Air Room Air Oxygen Flow Rate Labs Labs: Laboratory Results - last 24 hr 06/20/24 06/20/24 06/20/24 00:10 16:09 16:45 WBC RBC Hgb 11.0 L Hct MCV MCH MCHC Plt Count Sodium Potassium BUN Creatinine Estimated Creat Clear Estimated GFR Troponin I < 0.01 L TSH 26.200 H Free T4 0.95 Lab Acknowledgement New Spec Needed 06/21/24 05:35 WBC 10.02 RBC 2.86 L Hgb 8.8 L Hct 29.1 L MCV 102 H MCH 31 MCHC 30 L Plt Count 248 Sodium 137 Potassium 4.2 BUN 21 Creatinine 0.5 Estimated Creat Clear 34.88 Estimated GFR 92 Troponin I TSH Free T4 Lab Acknowledgement
--- NOTE | 2024-06-21 15:32 | PC.NURSE ---
End of Shift: Patient gets slightly agitated when attempting to do cares. Baseline dementia. Patient has been hypotensive today, MD notified, bolus completed. Patient has also been on and off tachycardic this shift. She has taken dressing off her right hip multiple times this shift.Patient is unable to report pain, gave PRN medication due to increased fidgeting and agitation. Patient does not tolerate SCD's. She has declined breakfast and lunch this shift, we did provide an ensure. Regular diet.
--- NOTE | 2024-06-21 18:58 | PC.NURSE ---
Shift Note: Pt more alert this evening and taking sips of fluid when offered. She ate 1/2 a twin pop popsicle and 25% of an egg salad sandwich and fries. BP's 90's/60's & HR 110-140's, 500cc bolus given per MD. Oxy given PRN and using ice pack intermittently. Pt continues to desaturate to low 80's on RA and will not tolerate NC, she removes it from her face and sets it aside. SpO2 sits at low 90's with blow by at 8L. Pt known to remove distal mepilex multiple times today, machine sign writer covered dressing loosely with IGNACIO bandage and pt has left site alone. Both mepilex dressing are C,D,&I.
[2024-06-21] MEDS: LACTATED RINGERS 1000 ML 1,000 ML 100 ML IV (21:23)
[2024-06-22] VITALS (9 sets, daily range): BP systolic 97–135; BP diastolic 57–78; PULSE 92–126; RESP 18–24; TEMP 36.2–37.5; O2SAT 86–93; BMI 18.5
[2024-06-22] MEDS: ACETAMINOPHEN 325 MG TABLET 650 MG PO ×4 (02:44→21:33)
[2024-06-22] MEDS: OXYCODONE 5 MG TABLET PO ×5 (02:44→21:38)
--- NOTE | 2024-06-22 05:32 | PC.NURSE ---
Shift note: Pt has been in bed throughout the shift. Turn and reposition Q2H. Pt unable to verbalize pain but does moan and said it hurt. PRN and scheduled pain medication given. Bp continue to be soft and HR trended above 100. Urine output low despite IV fluid given. notified, assessed pt to be well hydrated. Ordered to continue monitoring, maintained IV R/L at 100ml/hr. home organizer DC. Pills crushed and given with applesauce. Pt unable to keep oxygen either through NC or OxyMask. Oxygen through OxyMask placed closer to nose.
[2024-06-22 06:24] LABS: Sodium* 136 mmol/L (135-149)
[2024-06-22 06:25] LABS: Potassium* 3.8 mmol/L (3.6-5.1)
[2024-06-22 06:27] LABS: Creatinine* 0.5 mg/dL (0.5-1.5); Est. Creatinine Clearance* 35.48; Estimated Glomerular Filt Rate 92 ml/min
[2024-06-22 06:28] LABS: Blood Urea Nitrogen* 16 mg/dL (7-30)
[2024-06-22 06:33] LABS: Hemoglobin* 8.3 gm/dL (12.0-16.0); Mean Corpuscular HGB Conc 31 gm/dL (32-36); Mean Corpuscular Hemoglobin 31 pg (26-34); Mean Corpuscular Volume 100 fL (80-100); Platelet Count* 285 K/uL (140-440); Red Blood Count 2.69 m/uL (4.00-5.20)
[2024-06-22] MEDS: LEVOTHYROXINE 75 MCG TABLET PO (07:05)
[2024-06-22 07:12] LABS: Slide Review Reflex No
[2024-06-22] MEDS: SERTRALINE 100 MG TABLET PO (07:58)
[2024-06-22] MEDS: SENNOSIDES 1 TAB TABLET 2 TAB PO ×2 (07:58→21:34)
[2024-06-22] MEDS: LACTATED RINGERS 1000 ML 1,000 ML 100 ML IV ×2 (07:58→18:17)
[2024-06-22] MEDS: METOPROLOL TARTRATE 25 MG TABLET 12.5 MG PO (08:54)
--- NOTE | 2024-06-22 10:43 | PC.SOCIAL ---
Addendum entered by ALICIA Bailey 06/22/24 11:18: Received email from [facility] nurse, Qian, stating they can accept pt back at discharge tomorrow and would prefer pt to arrive before 2:00. dimension mill worker to follow up as needed. Original Note: Discharge planning: Called son and POA, Prasanth, regarding discharge planning. Prasanth requested information be sent to [facility] where pt has been living, and requested she be discharged back to that facility if they are able to meet her needs there. Called [facility] and spoke with nurseKatlyn, who requested information be emailed for evaluation for re-admit at discharge. Secure emailed information and awaiting call back with decision on admit at discharge. dimension mill worker to follow up as needed.
--- NOTE | 2024-06-22 11:52 | PM.IMPN1 ---
Progress Note: A&P Assessment and plan (1) Fall: Status: Acute (2) Fracture of hip, right, closed: Problem details: - status post ORIF 06/[address] Moralez - routine postop cares - 06/21 significant blood loss anemia overnight, suspect secondary to fracture, no evidence of hematoma or active bleeding at this time. Monitor, hold off on starting pharmacologic VTE prophylaxis today. Recheck hemoglobin tomorrow. Use TEDs and SCDs for VTE prophylaxis. - 06/22 Hgb stable. Starting Eliquis for afib stroke and VTE prophylaxis. Status: Acute (3) Osteoporosis: Status: Chronic (4) Dementia: Problem details: - severe Status: Chronic (5) Afib: Problem details: - appears to be new, cannot find any mention of this in her history, son confirms that this is new for her - looks like she has a history of hyperthyroidism, TSH elevated, free T4 wnl - BP improved today. HR mildly elevated. Start metoprolol orally for rate control. - Start renally dosed afib prophylaxis. Status: Acute (6) Acute blood loss anemia: Problem details: - suspect secondary to fracture. Hgb stable now. Status: Acute Plan - If afib rate improved and BP remains stable with starting metoprolol, may be able to d/c tomorrow. Subjective Time Seen by Provider: 07:15 Date Seen: 06/22/24 Interval history: Valdo is more verbal today. She thinks I am her family member and was very happy to see me. I spoke with her son, Prasanth, over the phone this morning. He was agreeable to her starting anticoagulation for afib stroke and VTE prophylaxis. Exam Narrative: Exam Narrative: General: No acute distress. Awake, alert, oriented only to self. No pallor. No jaundice. Oropharynx: Clear. Mucous membranes moist. Cardiovascular: Irregularly irregular, mildly tachycardic. No murmurs, gallops, or rubs. Respiratory: Clear to auscultation bilaterally. No wheezes or crackles. Abdomen: Bowel sounds present. Soft, nondistended, nontender. Extremities: Right hip bandages are clean, dry, and intact. No ecchymosis. No pedal edema. Const: Vital Signs, click to edit/add: Vital Signs - 24 hr 06/21/24 15:00 06/21/24 15:00 06/21/24 15:00 Temperature Pulse Rate Pulse Rate [Pulse Oximeter] 122 H 122 H Respiratory Rate 20 20 20 Blood Pressure [Ri ght Arm] 91/55 L Pulse Oximetry 91 91 Oxygen Delivery Me thod Blow By Blow By Oxygen Flow Rate 9 1 06/21/24 15:00 06/21/24 19:00 06/21/24 22:42 Temperature 99.5 F Pulse Rate 157 H Pulse Rate [Pulse Oximeter] 104 H 120 H Respiratory Rate 20 20 Blood Pressure [Ri ght Arm] 98/53 L Pulse Oximetry 91 Oxygen Delivery Me thod Room Air Oxygen Flow Rate 1 06/21/24 22:42 06/21/24 22:42 06/22/24 02:55 Temperature 99 F 99.5 F Pulse Rate Pulse Rate [Pulse Oximeter] 120 H 117 H Respiratory Rate 20 20 20 Blood Pressure [Ri ght Arm] 96/53 L 135/65 Pulse Oximetry 96 96 91 Oxygen Delivery Me thod Blow By Blow By Nasal Cannula Oxygen Flow Rate 9 9 2 06/22/24 09:28 06/22/24 09:31 Temperature 98.9 F Pulse Rate Pulse Rate [Pulse Oximeter] 116 H Respiratory Rate 24 24 Blood Pressure [Ri ght Arm] 117/69 Pulse Oximetry 93 93 Oxygen Delivery Me thod Room Air Room Air Oxygen Flow Rate Labs Labs: Laboratory Results - last 24 hr 06/22/24 05:34 WBC 11.50 H RBC 2.69 L Hgb 8.3 L Hct 27.0 L MCV 100 MCH 31 MCHC 31 L Plt Count 285 Sodium 136 Potassium 3.8 BUN 16 Creatinine 0.5 Estimated Creat Clear 35.48 Estimated GFR 92
[2024-06-22] MEDS: APIXABAN 5 MG TABLET 2.5 MG PO ×2 (12:26→21:33)
--- NOTE | 2024-06-22 19:01 | PC.NURSE ---
End of shift [id number] ? Pt alert, oriented to self and disoriented to place, time, and situation. Pt pleasant with staff but noted to be anxious with movement and with assistance by staff as evidenced by pulling away, whimpering, and closing her eyes. Up to chair with 2 assist and easy stand. Pt noted to have difficulty following direction. Pt able to eat when encouraged, but overall appetite was noted to be poor during shift. Izquierdo catheter observed to be patent and draining. Pt observed to sleep during shift. Tolerating RA, O2 saturation reading lower than MD order but pt did not tolerate nasal cannula and continuously d/c?d. Medication given per JAN when pt behavior indicated discomfort. Behavior monitored to indicate improvement. ?
[2024-06-23] VITALS (12 sets, daily range): BP systolic 92–155; BP diastolic 55–91; PULSE 83–151; RESP 18–28; TEMP 36.6–37.6; O2SAT 84–99
[2024-06-23] MEDS: LACTATED RINGERS 1000 ML 1,000 ML 100 ML IV (03:21)
[2024-06-23] MEDS: ACETAMINOPHEN 325 MG TABLET 650 MG PO ×2 (03:21→21:02)
[2024-06-23] MEDS: OXYCODONE 5 MG TABLET PO ×2 (03:22→11:40)
--- NOTE | 2024-06-23 04:35 | PC.NURSE ---
Shift note: Pt continue to be disoriented, unable to indicae
--- NOTE | 2024-06-23 04:40 | PC.NURSE ---
Shift note: Pt continue to be disoriented, unable to indicate pain. Nurse used behavior to determine the need for pain medication and given as ordered. Bp at 2100 was low, Metoprolol held. Pt was not able to tolerate oxygen given through either NC or OxyMask. Nurse attempted to give near pt's face through OxyMask at 8L. Turn and reposition Q2H. Pills given crushed with applesauce. Low urine output but Izquierdo draining well.
[2024-06-23] MEDS: LEVOTHYROXINE 75 MCG TABLET PO (06:38)
[2024-06-23] MEDS: DIGOXIN 250 MCG TABLET PO ×2 (08:03→21:30)
[2024-06-23 08:36] LABS: Hematocrit 26.3 % (33.0-51.0); Hemoglobin* 8.1 gm/dL (12.0-16.0); Mean Corpuscular HGB Conc 31 gm/dL (32-36); Mean Corpuscular Hemoglobin 31 pg (26-34); Mean Corpuscular Volume 100 fL (80-100); Platelet Count* 270 K/uL (140-440); Red Blood Count 2.63 m/uL (4.00-5.20); White Blood Count* 9.68 K/uL (4.50-11.00)
[2024-06-23 08:37] LABS: Slide Review Reflex No
[2024-06-23 08:51] LABS: Potassium* 3.6 mmol/L (3.6-5.1); Sodium* 136 mmol/L (135-149)
[2024-06-23 08:54] LABS: Blood Urea Nitrogen* 16 mg/dL (7-30); Creatinine* 0.5 mg/dL (0.5-1.5); Est. Creatinine Clearance* 40.01; Estimated Glomerular Filt Rate 92 ml/min
--- NOTE | 2024-06-23 11:04 | PC.SOCIAL ---
Discharge planning: Pt is not ready for discharge today and will need to stay in the hospital another day per MD on duty. ornamental ironworker helper notified Qian at [facility] via email and also left a message with pt's son, Prasanth. When this worker tried calling pt's son, Prasanth, it went straight to voicemail and that is when this worker left a message. Social work to follow-up as needed.
--- NOTE | 2024-06-23 15:03 | PM.IMPN1 ---
Progress Note: A&P Assessment and plan (1) Fall: Status: Acute (2) Fracture of hip, right, closed: Problem details: - status post ORIF 06/[address] Moralez - routine postop cares - 06/21 significant blood loss anemia overnight, suspect secondary to fracture, no evidence of hematoma or active bleeding at this time. Monitor, hold off on starting pharmacologic VTE prophylaxis today. Recheck hemoglobin tomorrow. Use TEDs and SCDs for VTE prophylaxis. - 06/22 Hgb stable. Starting Eliquis for afib stroke and VTE prophylaxis. - 06/23 Hgb slowly trending down, HR elevated, BP soft, will try giving 1 unit PRBC. Status: Acute (3) Osteoporosis: Status: Chronic (4) Dementia: Problem details: - severe Status: Chronic (5) Afib: Problem details: - appears to be new, cannot find any mention of this in her history, son confirms that this is new for her - looks like she has a history of hyperthyroidism, TSH elevated, free T4 wnl - Since BP is soft, will start digoxin, oral load today. - Continue renally dosed apixaban. Status: Acute (6) Acute blood loss anemia: Problem details: - suspect secondary to fracture. Hgb stable, but symptomatic with elevated HR, soft BP. Give 1 unit PRBC. Status: Acute Plan - When afib rate improved and BP remains stable with starting metoprolol, may be able to d/c tomorrow. Subjective Time Seen by Provider: 07:38 Date Seen: 06/23/24 Interval history: Valdo remains pleasantly demented. Nursing notes that she has been spitting out or refusing to take oral meds. She has not been getting metoprolol due to SBPs slightly under 100. I spoke with Valdo's son about anemia, medication administration, BP, HR, anticoagulation. He is agreeable to her getting blood for anemia. Exam Narrative: Exam Narrative: General: No acute distress. Awake, alert, oriented only to self. No pallor. No jaundice. Oropharynx: Clear. Mucous membranes moist. Cardiovascular: Irregularly irregular, mildly tachycardic. No murmurs, gallops, or rubs. Respiratory: Clear to auscultation bilaterally. No wheezes or crackles. Abdomen: Bowel sounds present. Soft, nondistended, nontender. Extremities: Inferior surgical wound exposed (she picked off bandage), wound is clean, dry, intact with intact surgical glue. Right hip bandages are clean, dry, and intact. No ecchymosis. No pedal edema. Const: Vital Signs, click to edit/add: Vital Signs - 24 hr 06/22/24 16:07 06/22/24 16:09 06/22/24 19:00 Temperature 98.5 F 98.5 F Pulse Rate Pulse Rate [Pulse Oximeter] 97 112 H Respiratory Rate 24 24 18 Blood Pressure Blood Pressure [Ri ght Arm] 135/69 127/78 Pulse Oximetry 86 L 86 L 89 Oxygen Delivery Me thod Room Air Room Air Room Air Oxygen Flow Rate 06/22/24 21:00 06/22/24 22:47 06/22/24 22:47 Temperature Pulse Rate Pulse Rate [Pulse Oximeter] 126 H Respiratory Rate 18 18 Blood Pressure Blood Pressure [Ri ght Arm] 97/68 Pulse Oximetry 92 Oxygen Delivery Me thod Room Air Blow By Oxygen Flow Rate 8 06/22/24 22:47 06/23/24 03:00 06/23/24 07:32 Temperature 98 F 98.6 F 97.9 F Pulse Rate Pulse Rate [Pulse Oximeter] 126 H 123 H 127 H Respiratory Rate 18 18 22 Blood Pressure Blood Pressure [Ri ght Arm] 102/66 102/72 92/64 Pulse Oximetry 92 91 89 Oxygen Delivery Me thod Blow By Room Air Room Air Oxygen Flow Rate 8 06/23/24 07:32 06/23/24 07:32 06/23/24 07:34 Temperature Pulse Rate Pulse Rate [Pulse Oximeter] 127 H 151 H Respiratory Rate 22 22 Blood Pressure Blood Pressure [Ri ght Arm] 92/71 Pulse Oximetry 89 Oxygen Delivery Me thod Room Air Oxygen Flow Rate 06/23/24 08:03 06/23/24 11:32 06/23/24 14:46 Temperature 99.5 F 99.1 F Pulse Rate 127 H 109 H Pulse Rate [Pulse Oximeter] 139 H Respiratory Rate 22 28 H Blood Pressure 122/83 Blood Pressure [Ri ght Arm] 155/72 H Pulse Oximetry 90 84 L Oxygen Delivery Me thod Nasal Cannula Oxygen Flow Rate 1.5 Labs Labs: Laboratory Results - last 24 hr 06/23/24 08:27 WBC 9.68 RBC 2.63 L Hgb 8.1 L Hct 26.3 L MCV 100 MCH 31 MCHC 31 L Plt Count 270 Sodium 136 Potassium 3.6 BUN 16 Creatinine 0.5 Estimated Creat Clear 40.01 Estimated GFR 92 Blood Type A Positive Antibody Screen NEGATIVE Crossmatch (AHG) See Detail
--- NOTE | 2024-06-23 19:01 | PM.ORPN ---
Subjective Subjective Date Seen: 06/21/24 Principal diagnosis: POD 1 right IM nail for intertrochanteric fracture Interval history: Patient has known baseline dementia, thus poor historian. Per nursing staff, patient has been fidgety, and is torn off for more distal right hip bandage. Does not appear to be in significant discomfort. Not tolerating bilateral foot SCDs. No acute events over night. Pain managed with scheduled and PRN medications, ice. DVT prophylaxis: SCDs as hemoglobin is low postoperatively. No obvious fevers. Patient's pre and postoperative route has been complicated by new onset AFib. She is also receiving oxygen blow-by due to low oxygen saturations. Ortho Exam Narrative Exam Narrative: -Patient appears comfortable in bed; no apparent acute distress. Somewhat fidgety when palpating her legs and hip - patient is awake, and tracks provider/- appropriately -Operative hip mild-moderately swollen; soft tissues supple; no obvious erythema. No significant ecchymosis. Warmth appropriate -proximal surgical dressing clean, dry, intact; no obvious drainage, no erythematous streaking peripheral to the bandage. Distal bandage is removed; wound looks healthy -Bilateral calves soft and supple; no significant swelling, edema, tenderness, erythema, discoloration, warmth, or palpable cords -2+ DP/PT pulses, intact dermatomes and myotomes distally. Const Vital Signs, click to edit/add: Vital Signs - 24 hr 06/22/24 21:00 06/22/24 22:47 06/22/24 22:47 Temperature Pulse Rate Pulse Rate [Pulse Oximeter] 126 H Respiratory Rate 18 18 Blood Pressure Blood Pressure [Left Arm] Blood Pressure [Right Arm] 97/68 Pulse Oximetry 92 Oxygen Delivery Method Room Air Blow By Oxygen Flow Rate 06/22/24 22:47 06/23/24 03:00 06/23/24 07:32 Temperature 98 F 98.6 F 97.9 F Pulse Rate Pulse Rate [Pulse Oximeter] 126 H 123 H 127 H Respiratory Rate 18 18 22 Blood Pressure Blood Pressure [Left Arm] Blood Pressure [Right Arm] 102/66 102/72 92/64 Pulse Oximetry 92 91 89 Oxygen Delivery Method Blow By Room Air Room Air Oxygen Flow Rate 8 06/23/24 07:32 06/23/24 07:32 06/23/24 07:34 Temperature Pulse Rate Pulse Rate [Pulse Oximeter] 127 H 151 H Respiratory Rate 22 22 Blood Pressure Blood Pressure [Left Arm] Blood Pressure [Right Arm] 92/71 Pulse Oximetry 89 Oxygen Delivery Method Room Air Oxygen Flow Rate 06/23/24 08:03 06/23/24 11:32 06/23/24 14:46 Temperature 99.5 F 99.1 F Pulse Rate 127 H 109 H Pulse Rate [Pulse Oximeter] 139 H Respiratory Rate 22 28 H Blood Pressure 122/83 Blood Pressure [Left Arm] Blood Pressure [Right Arm] 155/72 H Pulse Oximetry 90 84 L Oxygen Delivery Method Nasal Cannula Oxygen Flow Rate 1.5 06/23/24 15:11 06/23/24 15:11 06/23/24 15:11 Temperature 99.5 F 99.5 F Pulse Rate 101 H Pulse Rate [Pulse Oximeter] 101 H 101 H Respiratory Rate 26 H 26 H 26 H Blood Pressure 128/78 Blood Pressure [Left Arm] 128/78 Blood Pressure [Right Arm] Pulse Oximetry 85 L 85 L Oxygen Delivery Method Room Air Oxygen Flow Rate 06/23/24 15:11 06/23/24 15:46 06/23/24 16:59 Temperature 99.6 F 99.4 F Pulse Rate 105 H 93 Pulse Rate [Pulse Oximeter] Respiratory Rate 26 H 26 H 22 Blood Pressure 107/55 L 134/85 Blood Pressure [Left Arm] Blood Pressure [Right Arm] Pulse Oximetry 85 L 84 L 88 Oxygen Delivery Method Room Air Oxygen Flow Rate Assessment and Plan Assessment and plan (1) Fall: Status: Acute (2) Fracture of hip, right, closed: Problem details: - status post ORIF 06/[address] Moralez - routine postop cares - 06/21 significant blood loss anemia overnight, suspect secondary to fracture, no evidence of hematoma or active bleeding at this time. Monitor, hold off on starting pharmacologic VTE prophylaxis today. Recheck hemoglobin tomorrow. Use TEDs and SCDs for VTE prophylaxis. - 06/22 Hgb stable. Starting Eliquis for afib stroke and VTE prophylaxis. - 06/23 Hgb slowly trending down, HR elevated, BP soft, will try giving 1 unit PRBC. Status: Acute (3) Osteoporosis: Status: Chronic (4) Dementia: Problem details: - severe Status: Chronic (5) Afib: Problem details: - appears to be new, cannot find any mention of this in her history, son confirms that this is new for her - looks like she has a history of hyperthyroidism, TSH elevated, free T4 wnl - Since BP is soft, will start digoxin, oral load today. - Continue renally dosed apixaban. Status: Acute (6) Acute blood loss anemia: Problem details: - suspect secondary to fracture. Hgb stable, but symptomatic with elevated HR, soft BP. Give 1 unit PRBC. Status: Acute Plan - Complete 23 hour perioperative antibiotics. - PT/OT consult for education and assistance. - Social work consult for discharge planning - Prescribed analgesics as needed - limit oxycodone administration, as patient will be greatly impacted from this medication - DVT prophylaxis: After discussion with hospitalist, will hold off anticoagulation at this time due to low hemoglobin; will continue SCDs, and will try calf SCDs. - discharged unknown at this time. Likely return to SNF.
--- NOTE | 2024-06-23 19:05 | PC.NURSE ---
End of Shift: Patient pleasant but also anxious and refused cares at times. Patient vitally stable, at times hypotensive but also tachycardic, see vitals, BS WNL, IV SL and intact. Patient does not rate pain, and denies pain but does moan with activity, 5mg of oxy given once. Patient spat out or refused all meds besides an oxy and one dose of digoxin. Patient is EZ-stand. Patient barboza intact and draining. Patient took some bites of a muffin today and some sips of protein beverage, otherwise patient refuses any oral intake. Patient has been up in chair all shift, dozing on and off. Patient tolerated 1 unit of blood today.
--- NOTE | 2024-06-23 19:07 | PM.ORPN ---
Subjective Subjective Date Seen: 06/22/24 Principal diagnosis: POD 2 right IM nail for intertrochanteric fracture Interval history: Patient more alert this morning when conversing with her. No acute events overnight. Patient continues to pull bandages off the right hip per staff. Patient denies pain when asked, but moans discomfort when palpating her right thigh. States that her calves do not hurt when squeezed. As a reminder, patient is a poor historian with baseline dementia. Ortho Exam Narrative Exam Narrative: -Patient appears comfortable in bed; no apparent acute distress. Less fidgety today - patient is awake, and tracks provider/- appropriately. She is answering questions; however, I do not know if she understands the questions -Operative hip mild-moderately swollen; soft tissues supple; no obvious erythema. No significant ecchymosis. Warmth appropriate -proximal surgical dressing clean, dry, intact; no obvious drainage, no erythematous streaking peripheral to the bandage. Distal bandage is removed; wound looks healthy -Bilateral calves soft and supple; no significant swelling, edema, tenderness, erythema, discoloration, warmth, or palpable cords -2+ DP/PT pulses, intact dermatomes and myotomes distally. Const Vital Signs, click to edit/add: Vital Signs - 24 hr 06/22/24 21:00 06/22/24 22:47 06/22/24 22:47 Temperature Pulse Rate Pulse Rate [Pulse Oximeter] 126 H Respiratory Rate 18 18 Blood Pressure Blood Pressure [Left Arm] Blood Pressure [Right Arm] 97/68 Pulse Oximetry 92 Oxygen Delivery Method Room Air Blow By Oxygen Flow Rate 8 06/22/24 22:47 06/23/24 03:00 06/23/24 07:32 Temperature 98 F 98.6 F 97.9 F Pulse Rate Pulse Rate [Pulse Oximeter] 126 H 123 H 127 H Respiratory Rate 18 18 22 Blood Pressure Blood Pressure [Left Arm] Blood Pressure [Right Arm] 102/66 102/72 92/64 Pulse Oximetry 92 91 89 Oxygen Delivery Method Blow By Room Air Room Air Oxygen Flow Rate 8 06/23/24 07:32 06/23/24 07:32 06/23/24 07:34 Temperature Pulse Rate Pulse Rate [Pulse Oximeter] 127 H 151 H Respiratory Rate 22 22 Blood Pressure Blood Pressure [Left Arm] Blood Pressure [Right Arm] 92/71 Pulse Oximetry 89 Oxygen Delivery Method Room Air Oxygen Flow Rate 06/23/24 08:03 06/23/24 11:32 06/23/24 14:46 Temperature 99.5 F 99.1 F Pulse Rate 127 H 109 H Pulse Rate [Pulse Oximeter] 139 H Respiratory Rate 22 28 H Blood Pressure 122/83 Blood Pressure [Left Arm] Blood Pressure [Right Arm] 155/72 H Pulse Oximetry 90 84 L Oxygen Delivery Method Nasal Cannula Oxygen Flow Rate 1.5 06/23/24 15:11 06/23/24 15:11 06/23/24 15:11 Temperature 99.5 F 99.5 F Pulse Rate 101 H Pulse Rate [Pulse Oximeter] 101 H 101 H Respiratory Rate 26 H 26 H 26 H Blood Pressure 128/78 Blood Pressure [Left Arm] 128/78 Blood Pressure [Right Arm] Pulse Oximetry 85 L 85 L Oxygen Delivery Method Room Air Oxygen Flow Rate 06/23/24 15:11 06/23/24 15:46 06/23/24 16:59 Temperature 99.6 F 99.4 F Pulse Rate 105 H 93 Pulse Rate [Pulse Oximeter] Respiratory Rate 26 H 26 H 22 Blood Pressure 107/55 L 134/85 Blood Pressure [Left Arm] Blood Pressure [Right Arm] Pulse Oximetry 85 L 84 L 88 Oxygen Delivery Method Room Air Oxygen Flow Rate Assessment and Plan Assessment and plan (1) Fall: Status: Acute (2) Fracture of hip, right, closed: Problem details: - status post ORIF 06/[address] Moralez - routine postop cares - 06/21 significant blood loss anemia overnight, suspect secondary to fracture, no evidence of hematoma or active bleeding at this time. Monitor, hold off on starting pharmacologic VTE prophylaxis today. Recheck hemoglobin tomorrow. Use TEDs and SCDs for VTE prophylaxis. - 06/22 Hgb stable. Starting Eliquis for afib stroke and VTE prophylaxis. - 06/23 Hgb slowly trending down, HR elevated, BP soft, will try giving 1 unit PRBC. Status: Acute (3) Osteoporosis: Status: Chronic (4) Dementia: Problem details: - severe Status: Chronic (5) Afib: Problem details: - appears to be new, cannot find any mention of this in her history, son confirms that this is new for her - looks like she has a history of hyperthyroidism, TSH elevated, free T4 wnl - Since BP is soft, will start digoxin, oral load today. - Continue renally dosed apixaban. Status: Acute (6) Acute blood loss anemia: Problem details: - suspect secondary to fracture. Hgb stable, but symptomatic with elevated HR, soft BP. Give 1 unit PRBC. Status: Acute Plan - Complete 23 hour perioperative antibiotics. - PT/OT consult for education and assistance. - Social work consult for discharge planning - likely SNF - Prescribed analgesics as needed - again, limited oxycodone use for pain - DVT prophylaxis: Apixaban, and SCDs - Anticipation is for discharge to SNF if the patient remains medically stable, pain is controlled, and they are safe with mobilization.
[2024-06-23] MEDS: LORazepam 0.5 MG TABLET PO (20:41)
[2024-06-23] MEDS: METOPROLOL TARTRATE 25 MG TABLET PO (21:23)
[2024-06-23] MEDS: APIXABAN 5 MG TABLET 2.5 MG PO (21:24)
--- NOTE | 2024-06-23 23:08 | PC.NURSE ---
End of shift note [id number]: Pt wakes to name when spoken to though could not identify person or birthday when asked by business writer. Pt noted to have high anxiety at HS even with family present- PRN Ativan given which was effective upon followup. Software Applications Architect had to approach pt multiple times in order for her to be agreeable to take scheduled medications. Son Prasanth also noted to be anxious because of pt's behavior asking, Is my mom dying? after seeing fluctuating heart rates on monitor (continous pulse on noted to be pt's left foot). Software Applications Architect performed apical pulse and reassured son that heart rate was noted to be 94. Pt will not allow staff to put oxygen on when needed though O2 sat of 90% noted on RA at this time. Pt's son would like hospitalist to reevaluate pt's need for Ativan prior to her discharge to [facility]. Surgical dressing noted to be C/D/I to R hip with one incision VETERINARY LABORATORY TECHNICIAN with surgical glue in place. No drainage observed. Pt agreeable to taking HS Tylenol after encouragement and reapproaching.
--- NOTE | 2024-06-24 00:19 | PC.NURSE ---
Informational note: Humanities Department Chair had to remove Digoxin 250 mcg two times from [employer] as she originally refused HS dose. Medication was then wasted in bin in med room though once son later arrived he requested to attempt med administration again. Pt was then agreeable to take dose of Digoxin 250 mcg per order.
[2024-06-24 00:35] VITALS: BP 134/87; PULSE 105; RESP 20; TEMP 36.8; O2SAT 94
[2024-06-24 03:30] VITALS: BP 148/88; PULSE 107; RESP 20; TEMP 36.5; O2SAT 96
--- NOTE | 2024-06-24 07:21 | PC.NURSE ---
END OF SHIFT NOTE: PT PLEASANTLY DEMENTED. A&Ox1. DENIES CP, SOB, N/V. PT REMAINED IN BED THROUGHOUT SHIFT. PT REFUSED SCHEDULED TYLENOL. VSS ON RA; AFEBRILE. CASEY IN PLACE AND PATENT. BED ALARM ON AND CALL LIGHT WITHIN PT?S REACH.?
[2024-06-24 07:30] VITALS: BP 169/107; PULSE 105; RESP 20; TEMP 36.5; O2SAT 91
[2024-06-24 07:53] LABS: Hemoglobin* 10.7 gm/dL (12.0-16.0)
[2024-06-24] MEDS: APIXABAN 5 MG TABLET 2.5 MG PO (08:36)
[2024-06-24] MEDS: SERTRALINE 100 MG TABLET PO (08:36)
[2024-06-24 08:37] VITALS: PULSE 105
[2024-06-24] MEDS: METOPROLOL TARTRATE 25 MG TABLET PO (08:37)
[2024-06-24] MEDS: LEVOTHYROXINE 75 MCG TABLET PO (08:37)
[2024-06-24] MEDS: SENNOSIDES 1 TAB TABLET 2 TAB PO (08:37)
[2024-06-24] MEDS: DIGOXIN 125 MCG TABLET 62.5 MCG PO (08:37)
--- NOTE | 2024-06-24 09:15 | PM.DS1 ---
DS: Providers Provider Time Seen by Provider: 07:45 Date Seen: 06/24/24 Date of admission: 06/20/24 02:59 Primary care physician: Taylor Holloway MD Admitting Clinician: Radha Patel MD Consults: 06/20/24 15:25 Consult to Occupational Therapy [CONS] Routine Comment: Reason(s) for OT Consult:: Evaluate and Treat Any Restrictions?:: See Comment Comment: evaluate and treat Consult to Physical Therapy [CONS] Routine Comment: Reason(s) for PT Consult:: Evaluate and Treat Any Restrictions?:: See Comment Comment: Weight bear as tolerates right lower extremity Consult to Automobile Painter [CONS] Routine Comment: Reason for Consult:: Discharge Planning Needs Attending Physician on discharge: Radha Patel MD Date of Discharge: 06/24/24 DS: Diagnosis Discharge Diagnosis (1) Fall: Status: Acute (2) Fracture of hip, right, closed: Status: Acute Problem details: - status post ORIF 06/[address] Moralez (3) Acute blood loss anemia: Status: Acute Problem details: - suspect secondary to fracture. - 06/21 significant blood loss anemia overnight, suspect secondary to fracture, no evidence of hematoma or active bleeding at this time. Monitor, hold off on starting pharmacologic VTE prophylaxis today. Recheck hemoglobin tomorrow. Use TEDs and SCDs for VTE prophylaxis. - 06/22 Hgb stable. Starting Eliquis for afib stroke and VTE prophylaxis. - 06/23 Hgb slowly trending down, HR elevated, BP soft, give 1 unit PRBC. - 06/24 Hgb 10.7 after 1unit PRBC; HR, BP and O2sats improved (4) Afib: Status: Acute Problem details: - appears to be new, cannot find any mention of this in her history, son confirms that this is new for her - looks like she has a history of hyperthyroidism, TSH elevated, free T4 wnl - 8/6 Since BP is soft, will start digoxin, oral load today. - Continue renally dosed apixaban. - 8/7 HR improved to 105 at rest. Continue metoprolol and digoxin, discharge to [facility] today. Check to digoxin level later this week (5) Osteoporosis: Status: Chronic Problem details: - oral calcium and vitamin-D, consider starting a bisphosphonate as an outpatient. (6) Osteoarthritis: Status: Acute (7) Dementia: Status: Chronic Problem details: - severe DS: Summary Hospital Course Hospital Course: Per H&P: Marialuisa Little is seen as an Interactive Telehealth visit. Marialuisa Little is a 84 year old male who is 84-year-old female who presents to hospital after fall. Patient is a resident of a facility: [address] [place] [address]. At baseline this patient requires assistance with ambulation is noted to be high falls risk. She has noted severe dementia and has difficulty answering questions at baseline. She had a fall at her facility and she was brought to the ER. She was complaining of right hip pain. X-ray and CT imaging showed right hip intratrochanteric fracture. On-call orthopedics was communicated with and they plan for operative fixation in the a.m. Incidentally on the EKG the patient was found to have atrial fibrillation. She is not on anticoagulation and her rate is controlled. Unclear if this is a old diagnosis. Patient was admitted and had an echocardiogram later that same hospital day. She then underwent ORIF. Postoperatively she had elevated heart rates, soft blood pressures, and low urine output. She was given several fluid boluses. Due to soft blood pressures, many of the metoprolol doses were held. Digoxin was started yesterday and 1 unit packed red blood cells was given for hemoglobin of 8.1 associated with tachycardia and low normal blood pressures. Hemoglobin improved to 10.7 and vitals are improved as well. Heart rates today are now 80s to low 100s. She is no longer requiring oxygen and blood pressures are in the above normal range. She is discharged back to [facility] in stable condition. Izquierdo was discontinued today as well. Time Spent with Patient Time attestation: Total time spent providing and/or coordinating discharge services: Exam Narrative: Exam Narrative: General: No acute distress. Awake, alert, oriented only to self. No pallor. No jaundice. Oropharynx: Clear. Mucous membranes moist. Cardiovascular: Irregularly irregular. No murmurs, gallops, or rubs. Respiratory: Clear to auscultation bilaterally. No wheezes or crackles. Abdomen: Bowel sounds present. Soft, nondistended, nontender. Extremities: Inferior surgical wound exposed (she picked off bandage), wound is clean, dry, intact with intact surgical glue. Right hip bandages are clean, dry, and intact. No ecchymosis. No pedal edema. Const: Vital Signs, click to edit/add: Vital Signs - 24 hr 06/23/24 11:32 06/23/24 14:46 06/23/24 15:11 Temperature 99.5 F 99.1 F 99.5 F Pulse Rate 109 H 101 H Pulse Rate [Pulse Oximeter] 139 H Respiratory Rate 22 28 H 26 H Blood Pressure 122/83 128/78 Blood Pressure [Le ft Arm] Blood Pressure [Ri ght Arm] 155/72 H Pulse Oximetry 90 84 L 85 L Oxygen Delivery Me thod Nasal Cannula Oxygen Flow Rate 1.5 06/23/24 15:11 06/23/24 15:11 06/23/24 15:11 Temperature 99.5 F Pulse Rate Pulse Rate [Pulse Oximeter] 101 H 101 H Respiratory Rate 26 H 26 H 26 H Blood Pressure Blood Pressure [Le ft Arm] 128/78 Blood Pressure [Ri ght Arm] Pulse Oximetry 85 L 85 L Oxygen Delivery Me thod Room Air Room Air Oxygen Flow Rate 06/23/24 15:46 06/23/24 16:59 06/23/24 20:15 Temperature 99.6 F 99.4 F 99.2 F Pulse Rate 105 H 93 Pulse Rate [Pulse Oximeter] 83 Respiratory Rate 26 H 22 20 Blood Pressure 107/55 L 134/85 Blood Pressure [Le ft Arm] 142/91 H Blood Pressure [Ri ght Arm] Pulse Oximetry 84 L 88 99 Oxygen Delivery Me thod Room Air Oxygen Flow Rate 06/23/24 20:21 06/23/24 21:30 06/24/24 00:35 Temperature Pulse Rate 83 94 Pulse Rate [Pulse Oximeter] 105 H Respiratory Rate 20 Blood Pressure Blood Pressure [Le ft Arm] Blood Pressure [Ri ght Arm] Pulse Oximetry Oxygen Delivery Me thod Oxygen Flow Rate 06/24/24 00:35 06/24/24 00:35 06/24/24 03:30 Temperature 98.2 F 97.7 F Pulse Rate Pulse Rate [Pulse Oximeter] 105 H 107 H Respiratory Rate 20 20 20 Blood Pressure Blood Pressure [Le ft Arm] Blood Pressure [Ri ght Arm] 134/87 148/88 H Pulse Oximetry 94 94 96 Oxygen Delivery Me thod Room Air Room Air Room Air Oxygen Flow Rate 06/24/24 08:37 Temperature Pulse Rate 105 H Pulse Rate [Pulse Oximeter] Respiratory Rate Blood Pressure Blood Pressure [Le ft Arm] Blood Pressure [Ri ght Arm] Pulse Oximetry Oxygen Delivery Me thod Oxygen Flow Rate DS: Data Data Completed and Pending Completed studies during hospitalization: 06/20/2024 EKG: Atrial fibrillation with premature ventricular or aberrantly conducted complexes, 76 beats per minute, low-voltage QRS, incomplete right bundle-branch block. 06/20/2024 echocardiogram: Normal LV size, normal wall thickness, normal global systolic function with an estimated EF of 65-70%. Mildly enlarged left atrium. Moderately dilated right atrium. Right ventricular cavity size is mildly enlarged, global systolic RV function is normal. The aortic valve is trileaflet and calcified, no stenosis and trivial regurgitation. The mitral valve is normal, mild mitral regurgitation. Moderate tricuspid regurgitation. Ordering Physician: Shaun Medellin D.O. Date of Service: 06/19/24 Procedure(s): XR femur RT 1V Accession Number(s): [id number] cc: Shaun Medellin D.O.; Taylor Holloway M.D.~ For Patients: As a result of the Cures Act, medical imaging exams and procedure reports are released immediately into your electronic medical record. You may view this report before your referring provider. If you have questions, please contact your health care provider. Indication: Trauma. Technique: Right femur, 2 views. Comparison: None. Findings/Impression: Bones: Acute displaced right femoral intertrochanteric fracture with varus angulation. Joint spaces: Unremarkable. Soft tissues: Unremarkable. Dictated by Ricki Vazquez MD @ 06/20/2024 12:17:45 AM (Electronically Signed) Ordering Physician: Shaun Medellin D.O. Date of Service: 06/19/24 Procedure(s): XR hip LT 1V Accession Number(s): [id number] cc: Shaun Medellin D.O.; Taylor Holloway M.D.~ For Patients: As a result of the Cures Act, medical imaging exams and procedure reports are released immediately into your electronic medical record. You may view this report before your referring provider. If you have questions, please contact your health care provider. Indication: Trauma. Technique: Pelvis/left hip, 2 views. Comparison: October 24, 2018. Findings/Impression: Bones/joint spaces: Left hip intertrochanteric arelis and nail. Subtle lucency involving the left lateral femoral neck favored to be related to overlapping heterotopic bone formation. Recommend correlation with point tenderness to exclude nondisplaced fracture. Otherwise, no hardware complication. Acute right hip intertrochanteric fracture with varus angulation. Soft tissues: Unremarkable. Dictated by Ricki Vazquez MD @ 06/20/2024 12:23:29 AM (Electronically Signed) Ordering Physician: Shaun Medellin D.O. Date of Service: 06/19/24 Procedure(s): CT cervical spine wo con Accession Number(s): [id number] cc: Shaun Medellin D.O.; Taylor Holloway M.D.~ For Patients: As a result of the Cures Act, medical imaging exams and procedure reports are released immediately into your electronic medical record. You may view this report before your referring provider. If you have questions, please contact your health care provider. INDICATION: Fall. COMPARISON: None. TECHNIQUE: CT of the cervical spine without IV contrast. Coronal and sagittal reconstructions. FINDINGS: No acute fracture or traumatic malalignment of the cervical spine. Mild anterolisthesis of C3 on C4 and C4 on C5. Minimal retrolisthesis of C5 on C6 and C6 on C7. Reversal of the normal cervical lordosis. Degenerative changes of the C1-C2 articulation. Spondylotic changes including endplate spurring, facet arthropathy, and disc space narrowing. Bilateral neural foraminal narrowing and mild spinal canal stenosis at C5-C6 and C6-C7. No prevertebral soft tissue swelling. Visualized intracranial contents are unremarkable. Diminutive thyroid gland. The mastoid air cells are clear. Biapical pleural scarring. IMPRESSION: 1. No acute fracture or traumatic malalignment of the cervical spine. 2. Reversal of the normal cervical lordosis with multilevel spondylotic changes. Please note that all CT scans at this facility use dose modulation, iterative reconstruction, and/or weight-based dosing when appropriate to reduce radiation dose to as low as reasonably achievable. Dictated by Carol Huizar MD @ 06/20/2024 12:28:34 AM (Electronically Signed) Ordering Physician: Shaun Medellin D.O. Date of Service: 06/19/24 Procedure(s): CT head/brain wo con Accession Number(s): [id number] cc: Shaun Medellin D.O.; Taylor Holloway M.D.~ For Patients: As a result of the Cures Act, medical imaging exams and procedure reports are released immediately into your electronic medical record. You may view this report before your referring provider. If you have questions, please contact your health care provider. INDICATION: Fall. COMPARISON: None. TECHNIQUE: CT of the head without IV contrast. Coronal and sagittal reconstructions. FINDINGS: No intracranial hemorrhage, mass effect, or evidence of acute infarct. No midline shift. No abnormal extra-axial fluid collections. Moderate generalized cerebral and cerebellar volume loss with associated ex vacuo dilation of the lateral ventricles. Mild chronic small vessel ischemic disease. Orbits and extraocular muscles are symmetric. The visualized paranasal sinuses and mastoid air cells are clear. Soft tissues are unremarkable. No acute fracture identified. IMPRESSION: 1. No acute intracranial findings. 2. Moderate generalized parenchymal volume loss and mild chronic small vessel ischemic disease. Please note that all CT scans at this facility use dose modulation, iterative reconstruction, and/or weight-based dosing when appropriate to reduce radiation dose to as low as reasonably achievable. Dictated by Carol Huizar MD @ 06/20/2024 12:21:40 AM (Electronically Signed) Ordering Physician: German Varela M.D. Date of Service: 06/20/24 Procedure(s): CT chest abdomen pelv wo con Accession Number(s): [id number] cc: German Varela M.D.; Taylor Holloway M.D.~ For Patients: As a result of the Cures Act, medical imaging exams and procedure reports are released immediately into your electronic medical record. You may view this report before your referring provider. If you have questions, please contact your health care provider. INDICATION: Fall, right hip fracture, pelvic pain, chest pain, abdominal pain TECHNIQUE: CT chest, abdomen, and pelvis without i.v. contrast. Coronal and sagittal reformats were obtained. COMPARISON: None FINDINGS: CHEST: Cardiovascular: The heart has an unremarkable appearance and size. The pulmonary arteries are unremarkable in appearance. Ectasia of the ascending aorta is noted measuring 3.5 cm in maximal short axis diameter. Severe atherosclerotic calcifications are noted in the coronary arteries. Mediastinum: No mass or adenopathy seen. Lung: No pulmonary contusion, laceration or pneumothorax is seen. Pleura and pericardium: No sign of pleural effusion seen. No significant pericardial effusion is present. Chest wall and axilla: No mass or adenopathy seen. Bone: Unremarkable for age. No acute osseous injuries seen. ABDOMEN/PELVIS: Liver: Unremarkable. Spleen: Unremarkable. Pancreas: Unremarkable. Gallbladder: Faint layering densities are present within the gallbladder which may be due to sludge or noncalcified gallstones. Kidney: Unremarkable. No kidney or ureteral stones or obstruction seen. Adrenal: Unremarkable. Bowel: Unremarkable. The appendix is not identified. Vascular: Severe atherosclerotic calcifications of the abdominal aorta and its tributaries are present. Lymph: Unremarkable. Peritoneum: Unremarkable. No pneumoperitoneum is seen. No significant ascites is noted. Pelvis: Unremarkable. Soft tissue: Unremarkable. Bone: Moderate lumbar levoscoliosis is noted with associated facet arthritis and degenerative disc disease. There is an impacted and comminuted fracture in the intertrochanteric region of the proximal right femur. A left femoral dynamic compression screw is noted. IMPRESSIONS: 1. There is an impacted and comminuted fracture in the intertrochanteric region of the proximal right femur. 2. Severe atherosclerotic calcifications are noted in the coronary arteries. Dictated by Nando Tafoya MD @ 06/20/2024 1:11:46 AM Please note that all CT scans at this facility use dose modulation, iterative reconstruction, and/or weight-based dosing when appropriate to reduce radiation dose to as low as reasonably achievable. Dictated by: Nando Tafoya MD @ 06/20/2024 01:12:04 (Electronically Signed) Ordering Physician: Guy Moralez M.D. Date of Service: 06/20/24 Procedure(s): XR hip RT 1V Accession Number(s): [id number] cc: Guy Moralez M.D.; Taylor Holloway M.D.~ For Patients: As a result of the 21st Century Cures Act, medical imaging exams and procedure reports are released immediately into your electronic medical record. You may view this report before your referring provider. If you have questions, please contact your health care provider. Indication: Open reduction internal fixation Technique: Four fluoroscopic images of the right femur. Fluoroscopic time 107.7 seconds. IMPRESSION: Fluoroscopic guidance for open reduction internal fixation proximal right femoral fracture. Dictated by Vargas Alarcon MD @ 06/20/2024 4:16:04 PM (Electronically Signed) Labs on day of discharge: Labs from last 24 hours 06/24/24 06/23/24 07:39 08:27 Hgb 10.7 L Blood Type A Positive Antibody Screen NEGATIVE Crossmatch (AHG) See Detail Discharge Plan Discharge Disposition: Xfer SNF Discharge Location: [facility] Date of Admission: 06/20/24 02:59 Attending Provider on Discharge: Radha Patel Primary Care Provider: Taylor Holloway Discharge Medications: New acetaminophen 325 mg Tablet 650 mg PO Q6H Qty: 200 0RF digoxin 125 mcg (0.125 mg) Tablet 62.5 mcg PO DAILY Qty: 15 0RF metoprolol tartrate 25 mg Tablet 25 mg PO BID Qty: 60 0RF Rx Instructions: Hold for SBP less than 100 or HR less than 55 Eliquis 5 mg Tablet 2.5 mg PO BID Qty: 30 0RF oxycodone 5 mg Tablet 2.5 - 5 mg PO Q4H MDD 25 mg PRN (Reason: Pain) Qty: 30 0RF Continued sertraline 100 mg tablet 100 mg PO DAILY levothyroxine 75 mcg tablet 75 mcg PO DAILY lorazepam 0.5 mg tablet 0.25 mg PO DAILY PRN Rx Instructions: Take 1/2 tablet by mouth once a week Prior to bath on bath day and 1/2 tab PO QD PRN agitation with cares sertraline 25 mg tablet 25 mg PO DAILY clotrimazole [Antifungal (clotrimazole)] 1 % cream topical sennosides-docusate sodium [Stimulant Laxative Plus] 8.6-50 mg tablet 1 tab-cap PO BID Discontinued acetaminophen 500 mg tablet 1,000 mg PO TID PRN Discharge Orders: Discharge Order (Routine); Ordered 06/24/24 Ordered By: Radha Patel Activity Level: Up with assist and Use Walker Activity Detail: Weightbear as tolerated right lower extremity. Remove dressings in 2 weeks or as needed. PT and OT at [facility] daily. Discharge Diet: Regular Forms: MyHealth Info Instructions Discharge Comments: Appointment with Dr. Moralez, [facility] and 6 weeks. Admit to: SNF Discharge Potential: Poor Length of Stay: >90 days Can use facility standing orders?: Yes Code Status: DNR/DNI TEDs: Bilateral Knee Rehab Potential: Fair Therapy: Physical Therapy and Occupational Therapy Therapy Orders: Evaluate and Treat Oxygen: No Urinary Catheter: No Lab Orders: Digoxin level Saturday Orders are good >30 days: No Signature: Radha Patel MD
--- NOTE | 2024-06-24 10:43 | PC.SOCIAL ---
Addendum entered by LIAM Rogers 06/24/24 13:53: Discharge planning: Discussed The Important Message from Medicare form with pt's son, Prasanth, earlier today and he was please with the discharge plan and had no concerns with his mother returning to [facility] today. Social work to follow-up as needed. Addendum entered by LIAM Rogers 06/24/24 11:56: Discharge planning: Discharge orders were sent via secure email to Qian and Katlyn at [facility]. Social work to follow-up as needed. Original Note: Discharge planning: Pt is ready to return to [facility] at [facility] today and will discharge early this afternoon. soil sort worker notified Qian at [facility]. soil sort worker spoke to pt's son, Prasanth, about transportation and he would like non-emergent EMS set-up and will pay the cost of the transport. The cost will be about $100.00($85 for pick-up and $5 per mile/[facility] is about 3 miles from the hospital). Transportation form was filled out and given to the charge nurse on duty. Social work to follow-up as needed.
[2024-06-24] MEDS: ACETAMINOPHEN 325 MG TABLET 650 MG PO (10:47)
[2024-06-24 11:30] VITALS: BP 148/81; PULSE 97; RESP 20; TEMP 36.7; O2SAT 92
== END 2024-06-24 13:01 | DRG 481 ==
LOC: ED 06-20 01:30 → OR 06-20 01:49 → MEDSURG 06-20 01:50 → OR 06-20 07:33 → MEDSURG 06-20 07:33
PROVIDERS: Family Medicine; Admitting Provider Student in an Organized Health Care Education/Training Program; Emergency Provider Emergency Medicine; PCP Family Medicine; Visit Provider Orthopaedic Surgery
PROC: 0QS606Z Reposition Right Upper Femur with Intramedullary Internal Fixation Device, Open Approach (ICD-10-PCS; CPT 27245; principal; 2024-06-20 09:00)
DX: S72.141A Displaced intertrochanteric fracture of right femur, initial encounter for closed fracture (principal); D62 Acute posthemorrhagic anemia; I48.91 Unspecified atrial fibrillation; F03.C0 Unspecified dementia, severe, without behavioral disturbance, psychotic disturbance, mood disturbance, and anxiety; M81.0 Age-related osteoporosis without current pathological fracture; E05.90 Thyrotoxicosis, unspecified without thyrotoxic crisis or storm; W19.XXXA Unspecified fall, initial encounter; Z91.81 History of falling; Y92.129 Unspecified place in nursing home as the place of occurrence of the external cause
CPT/HCPCS: 01210; 36415; 36430; 70450; 71250; 72125; 73501; 73551; 74176; 80048; 82565; 84132; 84295; 84439; 84443; 84484; 84520; 85018; 85025; 85027; 86850; 86900; 86901; 86922; 87081; 93005; 93306; 94761; 97116; 97162; 97166; 97530; 97535; 99100; 99140; 99283; 99285; A9270; C1713; J0690; J1100; J1170; J1885; J2405; J2704; J2710; J3010; J7030; J7120; P9016

== ENCOUNTER 2024-06-24 12:56 | Outpatient (CLI) | payer MEDICARE, OTHER, SELFPAY | END 2024-06-24 12:57 | disposition home or self-care (01) | LOC: AMB 06-27 09:37 | PROVIDERS: PCP Family Medicine; Visit Provider Family Medicine | DX: Z98.890 Other specified postprocedural states (principal); S72.001A Fracture of unspecified part of neck of right femur, initial encounter for closed fracture; F03.90 Unspecified dementia, unspecified severity, without behavioral disturbance, psychotic disturbance, mood disturbance, and anxiety | CPT/HCPCS: A0425; A0428 ==